=== PATIENT | male | born 1995 | race Caucasian/White ===

== ENCOUNTER 2017-03-07 09:08 | Inpatient (IN) ==
[2017-03-07] MEDS ORDERED: Albuterol 2.5 MG/3 ML NEBULIZER IH ONE (09:22)
[2017-03-07] MEDS ORDERED: CeFAZolin Syr 3,000MG/30 ML 3,000 MG/30 ML SYRINGE IVPB ONE (09:22)
[2017-03-07] MEDS ORDERED: Lidocaine -MPF 1% 2 ML VIAL ID ONE (09:22)
[2017-03-07] MEDS ORDERED: Ringers Solution, Lactated 1,000 ML IVC SCH (09:30)
[2017-03-07] MEDS ORDERED: *HR* Propofol 200 MG/20 ML VIAL IVP ONE ×2 (09:31→09:34)
[2017-03-07] MEDS ORDERED: *HR* Midazolam HCl 2 MG/2 ML VIAL ONE (09:31)
[2017-03-07] MEDS ORDERED: *HR* FentaNYL (PF) 100 MCG/2 ML VIAL ONE ×4 (09:31→13:28)
[2017-03-07] MEDS ORDERED: *HR* Succinylcholine 200 MG/10 ML VIAL IVP ONE (09:33)
[2017-03-07] MEDS ORDERED: Lidocaine -MPF 2% 2 ML VIAL ONE (09:34)
[2017-03-07] MEDS ORDERED: Ondansetron 4 MG/2 ML VIAL ONE (09:34)
[2017-03-07] MEDS ORDERED: Dexamethasone 4 MG/ML VIAL ONE (09:34)
--- NOTE | 2017-03-07 10:08 | Anesthesia Evaluation PreOp ---
Date of Encounter: 03/07/17 Time of Encounter: 10:06 - Past History Planned Operation: L4-S1 laminectomy Cardiac History: HTN Pulmonary History: Asthma WASH TEST CHECKER History: Other (RLE radicular pain) Other Medical History: Hepatic (fatty liver), GERD, Other (obesity) Anesthesia History: No Prior Anesthetic Complications, Past Anesthesia (liver bx ) Alcohol Use: none Drug use: none Medications and Allergies Albuterol Sulfate [Ventolin Hfa] 2 puff IH Q4H PRN 03/07/17 [History] Lisinopril/Hydrochlorothiazide [Zestoretic 20-12.5 mg Tablet] 1 tab PO DAILY 11/14 [History] Ranitidine HCl [Zantac] 150 mg PO BID 03/07/17 [History] 3 Allergy/AdvReac Type Severity Reaction Status Date / Time No Known Allergies Allergy Verified 03/07/17 09:46 - Meds/Allergy Pre-op Review Medications Reviewed: Yes Allergies Reviewed: Yes Beta Blockers on Current Med List: No Anesthesia Results - Labs Laboratory Tests 03/03/17 15:41 Hgb 15.2 Hct 45.3 Plt Count 291 Anesthesia Exam Selected Entries 03/07/17 09:33 Temperature 98.8 F Pulse Rate 100 Respiratory Rate 18 Blood Pressure 143/83 O2 Sat by Pulse Oximetry 97 Weight: 143kg BMI 38 NPO (# of Hours): 8 Pain Scale: 0 Pain Scale Used: Numeric (1 - 10) - HEENT Pupil (Motor): EOMI Mallampati: IV Teeth: Normal Oral Opening: Greater than 3 - WASH TEST CHECKER LOC: Oriented WASH TEST CHECKER Motor: Normal RUE, Normal LUE, Normal RLE, Normal LLE, Normal Face WASH TEST CHECKER Sensory: Normal: RUE, LUE, RLE, LLE, Face - Cardiac Rhythm: Regular Murmur: None - Pulmonary Breath Sounds: bilateral Clear Respiratory Effort: Symmetrical Anesthesia Assess/Plan ASA Score: 2 Modified [place] Scale for Level of Consciousness: Cooperative, oriented, and tranquil Anesthetic Plan: General Monitoring Plan: Standard Monitors Recovery Plan: PACU (Discussed GA, risks of post op visual changes. Agrees to proceed)
--- NOTE | 2017-03-07 10:51 | History & Physical Report ---
Date of Encounter: 03/07/17 Time of Encounter: 10:51 24 Hour HP Update - Instructions Instructions: If the History and Physical is less than 30 days old and was completed prior to A.M. admission and or procedure and has NOT been updated on calendar day of procedure please complete this update prior to performing procedure. - Update Patient reports changes in Medical Condition: No Changes in examination, assessment, or condition: No Changes in Medication: No Preop tests/diagnostics Reviewed: No Pre-Op MRSA Screen: Negative Surgery Remains Indicated: Yes Consent for Planned Operative Procedure(s) Verified: Yes - Pre-Operative Checklist Preoperative Checklist Indicated: No Prophylactic Antibiotic Ordered: Yes Home Medications Include Beta Abdullahi: No Beta Abdullahi Taken Today (Day of Surgery): No Beta Abdullahi Taken Yesterday (Day Prior to Surgery): No Is VTE Prophylaxis Indicated?: Yes
[2017-03-07] MEDS ORDERED: *HR* Promethazine 25 MG/ML VIAL IVP PRN (11:49)
[2017-03-07] MEDS ORDERED: *HR* Meperidine 25 MG/ML SYRINGE IVP PRN (11:49)
[2017-03-07] MEDS ORDERED: Ondansetron 4 MG/2 ML VIAL IVP ONE (11:49)
[2017-03-07] MEDS ORDERED: *HR* Labetalol 20 MG/4 ML SYRINGE IVP PRN (11:49)
[2017-03-07] MEDS ORDERED: *HR* Rocuronium Bromide 50 MG/5 ML VIAL ONE ×2 (11:55→12:49)
[2017-03-07] MEDS ORDERED: Neostigmine Methylsulfate 3 MG/3 ML SYRINGE ONE (12:49)
[2017-03-07] MEDS ORDERED: *HR* HYDROmorphone 2 MG/ML SYRINGE ONE (12:53)
[2017-03-07] MEDS ORDERED: *HR* Phenylephrine 10 MG/ML VIAL ONE (13:06)
--- NOTE | 2017-03-07 13:27 | Orthopedic Operative Note ---
Date of procedure: 03/07/17 Pre-op diagnosis: Lumbar stenosis, lumbar radiculopathy Post-op diagnosis: same Operation/Findings: Laminectomy L4-S1:The patient was brought to the operative theater where he underwent general endotracheal anesthesia. He was given antibiotics prior to the start of the procedure. Compression boots and stockings were used for deep vein thrombosis prophylaxis. The patient was placed prone on a Rafael table. The back was prepped and draped in the usual sterile fashion. An incision was marked and centered over the L4-S1 interspaces in the midline. We used Bovie cautery to make an incision and then this incision was deepened through the lumbar fascia. Bovie cautery and Velazquez elevators were used to reflect the paraspinal musculature to the lateral extent of the L4-5 and L5-S1 facet joints bilaterally. Mickie clamps were placed over the spinous processes of L4 and L5 and an intraoperative lateral fluorograph was obtained. A discusssion was held between the radiologist and surgeon who both confirmed we were at the correct operative level. We then removed the supraspinous and interspinous ligaments between L5 and S1 and subsequently removed the ligamentum flavum from its origin on the distal undersurface of the L5 lamina. The ligamentum flavum was noted to be quite hypertrophied as well as the facets were hypertrophied. 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 This required performing a laminectomy of L5 with partial medial facetectomies including undercutting of the L5-S1 facets to decompress the lateral recesses. move proximally to the L4 -5 level again removing the ligamentum flavum, and undercutting the facets at L4 -5 to decompress the lateral recesses. Partial L4 laminectomy was performed. After the decompression was complete we checked the foramen and the traversing nerve roots at L4-5 and L5-S1and they were found to be free and patent. We copiously irrigated the wound and then closed the wound in layers with 1 Vicryl for the fascia, 2-0 Vicryl for the subcutaneous tissue, and Dermabond was used for skin closure. Sterile dressings were placed over the wound, the patient was turned supine in a hospital bed, and was extubated in the operative theater. All sponge needles and instrument counts were correct at the end of the procedure. The patient tolerated the procedure well without complications. Anesthesia: GETA Surgeon: Raulito Chery Jr Estimated blood loss (cc): 35 Condition: stable Disposition: PACU
[2017-03-07] MEDS ORDERED: *HR* HYDROmorphone (PF) 1 MG/ML SYRINGE ONE (13:53)
[2017-03-07] MEDS: *HR* HYDROmorphone (PF) 1 MG/ML SYRINGE IVP PRN ×2 (13:55→14:00)
--- NOTE | 2017-03-07 14:26 | Anesthesia Evaluation Post Op ---
Date of Encounter: 03/07/17 Time of Encounter: 14:25 - Vital Signs Vital Signs: Vital Signs/O2 Sat, Most Current Temp Pulse Resp BP Pulse Ox 99.2 F 103 16 133/84 94 03/07/17 14:14 03/07/17 14:24 03/07/17 14:24 03/07/17 14:24 03/07/17 14:24 - Lungs Lungs: Clear Ascult./Percussion - Airway Airway: Non-obstructed - Cardiovascular Regular Rate - Mental Status Mental Status: Asleep with brisk response to light stimulation - Pain Pain Scale: 4 - Nausea Vomiting Nausea Vomiting: Not Present - Hydration Hydration: NPO, Has not voided - Discharge PostOp Status: Transfer Patient to floor
[2017-03-07] MEDS ORDERED: *HR* Morphine 2 MG/ML SYRINGE IVP PRN (14:53)
[2017-03-07] MEDS ORDERED: Ondansetron 4 MG/2 ML VIAL IVP PRN (14:53)
[2017-03-07] MEDS ORDERED: Acetaminophen 325 MG TABLET PO PRN (14:53)
[2017-03-07] MEDS ORDERED: Naloxone 0.4 MG/ML INJ IVP PRN (14:53)
[2017-03-07] MEDS ORDERED: *HR* OxyCODONE Immed Rel 5 MG TABLET PO PRN (14:53)
[2017-03-07] MEDS: Ringers Solution, Lactated 1,000 ML IVC SCH (18:45)
[2017-03-07] MEDS: Famotidine 20 MG TABLET PO SCH (19:47)
[2017-03-07] MEDS: CeFAZolin Premix DUPLEX 2,000 MG/50 ML BAG IVPB SCH (19:48)
[2017-03-08] MEDS: *HR* OxyCODONE Immed Rel 5 MG TABLET PO PRN ×5 (01:54→23:53)
[2017-03-08] MEDS: CeFAZolin Premix DUPLEX 2,000 MG/50 ML BAG IVPB SCH (04:31)
[2017-03-08] MEDS: diazePAM 10 MG TABLET PO PRN ×2 (04:43→21:39)
[2017-03-08] MEDS: Gabapentin 300 MG CAPSULE PO SCH ×3 (04:43→21:39)
[2017-03-08] MEDS: Famotidine 20 MG TABLET PO SCH ×2 (09:03→21:39)
[2017-03-08] MEDS: Lisinopril-HCTZ 20-12.5mg TABLET PO SCH (09:03)
--- NOTE | 2017-03-08 10:51 | Spine Progress Note ---
Date of Encounter: 03/08/17 Time of Encounter: 10:49 Subjective Principal diagnosis: Lumbar stenosis, lumbar radiculopathy Interval history: The patient complains of significant pain and is poorly mobilizing.. Afebrile vital signs are stable. Dressing is clean dry and intact. Neurovascularly intact with regard to bilateral lower extremities. Fires all upper and lower extremity motor groups. . Assessment :stable. Plan mobilize ,continue analgesics, discharge planning. Observation for possible home-based rehabilitation and pain control. Objective Vital signs: Vital Signs Temp Pulse Resp BP Pulse Ox 03/08/17 06:42 98.9 F 78 18 113/75 95 03/08/17 04:33 97.4 F L 109 15 156/112 96 03/07/17 18:23 98.3 F 108 15 138/70 97 03/07/17 16:10 97.8 F 119 16 110/56 93 03/07/17 15:20 98.6 F 122 16 113/60 96 03/07/17 14:53 97.7 F 118 16 116/71 03/07/17 14:34 99.0 F 108 16 136/77 94 03/07/17 14:24 103 16 133/84 94 03/07/17 14:14 99.2 F 98 16 118/69 93 03/07/17 14:04 110 16 126/74 93 03/07/17 13:54 118 16 139/82 94 03/07/17 13:44 99.5 F 99 16 141/91 96 Intake and Output 03/07/17 03/08/17 03/08/17 23:59 07:59 15:59 Intake Total 890 / 890 480 / 480 Balance 890 / 890 480 / 480 Intake: IV Fluids 50 / 50 Ancef Premix DUPLEX 2,000 mg In 50 / 50 50 ml @ 100 mls/hr IVPB Q8H [facility] Rx#:[id number] Oral 840 / 840 480 / 480 Other: Meal Dinner Breakfast Percent of Meal Consumed 70% 100% Consult Discharge Plan - Plan Referrals: Lily Chairez, SIGNAL PROCESSING ENGINEER [Primary Care Provider] -
[2017-03-09] MEDS ORDERED: Temazepam 15 MG CAPSULE PO PRN (00:19)
[2017-03-09] MEDS: *HR* Morphine 2 MG/ML SYRINGE IVP PRN ×3 (01:49→19:22)
[2017-03-09] MEDS: *HR* OxyCODONE Immed Rel 5 MG TABLET PO PRN ×2 (08:05→12:07)
[2017-03-09] MEDS: Lisinopril-HCTZ 20-12.5mg TABLET PO SCH (08:06)
[2017-03-09] MEDS: Gabapentin 300 MG CAPSULE PO SCH ×2 (08:06→15:12)
[2017-03-09] MEDS: Famotidine 20 MG TABLET PO SCH (08:06)
--- NOTE | 2017-03-09 12:55 | Discharge Summary ---
Date of Encounter: 03/09/17 Time of Encounter: 12:54 - Discharge Diagnosis (1) Lumbar stenosis without neurogenic claudication Priority: Primary Status: Chronic (2) Lumbar radiculopathy Priority: Secondary Status: Chronic - Discharge Medications Prescriptions: OxyCODONE Immed Rel [Roxicodone 5 MG] 5 mg PO Q4HR PRN #30 tablet PRN Reason: Severe Pain 7-10 Cyclobenzaprine [Flexeril] 10 mg PO Q6H PRN #30 tablet PRN Reason: Spasms diazePAM [Valium] 10 mg PO TID PRN #30 tablet PRN Reason: Spasms Home Medications: Albuterol Sulfate [Ventolin Hfa] 2 puff IH Q4H PRN 03/07/17 [History] Lisinopril/Hydrochlorothiazide [Zestoretic 20-12.5 mg Tablet] 1 tab PO DAILY 11/14 [History] Ranitidine HCl [Zantac] 150 mg PO BID 03/07/17 [History] Cyclobenzaprine [Flexeril] 10 mg PO Q6H PRN #30 tablet 03/09/17 [Rx] OxyCODONE Immed Rel [Roxicodone 5 MG] 5 mg PO Q4HR PRN #30 tablet 03/09/17 [Rx] diazePAM [Valium] 10 mg PO TID PRN #30 tablet 03/09/17 [Rx] Allergies/Adverse Reactions: 3 Allergy/AdvReac Type Severity Reaction Status Date / Time No Known Allergies Allergy Verified 03/07/17 09:46 - Impressions ITS Impressions Fluoroscopy 03/07/17 11:50 IMPRESSION: Intraprocedural fluoroscopic spot images as above. See separate procedure report for more information. D/ / Stevie Mullins MD / Stevie Mullins MD Interpreting Provider: Stevie Mullins MD Date of admission: 03/07/2017 Primary care physician: Lily Chairez CNP Consults: 03/07/17 14:53 Consult to Nurse Navigator [CONS] Routine Comment: spine navigator Consult to Occupational Therapy [CONS] Routine Comment: Evaluate, develop and implement POC Reason for Consult: Postoperative rehabilitation Consult to Physical Therapy [CONS] Routine Comment: Evaluate, develop and implement POC Reason for Consult: Postoperative rehabilitation 03/09/17 12:30 Consult to Inserter Promotional Item [CONS] Routine Reason for SW Consult: d/c planning - Patient Status Disposition: Transfer Inpatient Rehab Fac Condition: Good Functional capacity at discharge: uses cane/walker Overall status at discharge: patient is progressing back to baseline - Discharge Instructions Follow Up With: Lily Chairez CNP [Primary Care Provider] - 03/20/17 1:30 pm - Diet and Activity Activity: as per physical therapy Diet: advance to your usual diet - Hospital Course Hospital course: Mr. Townsend is a 21 year old male The patient had an uneventful postoperative course. Progressed from intravenous analgesic needs to oral analgesic needs only. Remained neurovascularly intact and mobilized satisfactorily. All intraoperative and/or postoperative radiographic studies were satisfactory. Patient is discharged with plan for rehabilitation and follow-up in 2 weeks post discharge on analgesic medication and patient's home medications. - Time Spent with Patient Total time spent providing and/or coordinating discharge services: - VTE Documentation of Mechanical Device: Intermittent pneumatic compression device
[2017-03-09] MEDS ORDERED: ceFAZolin 3,000 MG in Water for inj. (sterile) 30 ML IVP ONE (17:05)
--- NOTE | 2017-03-09 17:10 | Spine Progress Note ---
Date of Encounter: 03/09/17 Time of Encounter: 17:06 - Assessment and Plan (1) Lumbar stenosis without neurogenic claudication Current Visit: Yes Status: Chronic (2) Lumbar radiculopathy Current Visit: Yes Status: Chronic Subjective Principal diagnosis: Lumbar stenosis, lumbar radiculopathy Interval history: The patient complains of significant pain and is poorly mobilizing. He has had 2 episodes of urinary incontinence today. He states that he can tell he needs to void, but he has difficulty initiating a stream and it takes longer than usual. Also has some left leg numbness. Afebrile vital signs are stable. Incision is clean dry and intact. Neurovascularly intact with regard to bilateral lower extremities. Fires all upper and lower extremity motor groups. Bladder scan was performed and showed at least 600 mL. Carroll catheter was placed and 2000 mL was evacuated prior to clamping. Lumbar CT scan was performed and showed postoperative hematoma seroma with evidence of prior laminectomies. 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 Assessment : Evolving cauda equina syndrome . Plan due to his concerning symptomatology consistent with evolving cauda equina syndrome including urinary incontinence and significant bladder residuals, I find it reasonable to perform surgery in the form of a evacuation of hematoma, possible laminectomies lumbar spine. Risks benefits possible complications were discussed and the patient would like to proceed. We will plan on semi-urgent decompression this evening. Objective Vital signs: Vital Signs Temp Pulse Resp BP Pulse Ox 03/09/17 11:52 98.1 F 110 16 118/76 97 03/09/17 06:51 98.7 F 87 16 128/76 95 03/09/17 05:00 98.9 F 95 16 125/83 96 03/09/17 00:32 98.1 F 100 18 109/71 95 03/08/17 19:53 98.9 F 100 18 114/64 95 Intake and Output 03/09/17 03/09/17 03/09/17 07:59 15:59 23:59 Other: # Voids 1 Consult Discharge Plan - Plan Referrals: Lily Chairez, SILVERWARE WASHER [Primary Care Provider] - 03/20/17 1:30 pm Asia Ceron PAC [Physician Nail Making Machine Setter] - 03/21/17 11:00 am Robi Felix, SILVERWARE WASHER [Advanced Practice Nurse] - Prescriptions: OxyCODONE Immed Rel [Roxicodone 5 MG] 5 mg PO Q4HR PRN #30 tablet PRN Reason: Severe Pain 7-10 Cyclobenzaprine [Flexeril] 10 mg PO Q6H PRN #30 tablet PRN Reason: Spasms diazePAM [Valium] 10 mg PO TID PRN #30 tablet PRN Reason: Spasms
--- NOTE | 2017-03-09 22:14 | Anesthesia Evaluation PreOp ---
Date of Encounter: 03/10/17 Time of Encounter: 22:10 - Past History Cardiac History: HTN Pulmonary History: Asthma Other Medical History: Hepatic (fatty liver), GERD, Other (obesity) Anesthesia History: No Prior Anesthetic Complications, Past Anesthesia (liver bx , L4-S1 laminectomy 03/07/2017) Alcohol Use: none Drug use: none Medications and Allergies Albuterol Sulfate [Ventolin Hfa] 2 puff IH Q4H PRN 03/07/17 [History] Lisinopril/Hydrochlorothiazide [Zestoretic 20-12.5 mg Tablet] 1 tab PO DAILY 11/14 [History] Ranitidine HCl [Zantac] 150 mg PO BID 03/07/17 [History] Cyclobenzaprine [Flexeril] 10 mg PO Q6H PRN #30 tablet 03/09/17 [Rx] OxyCODONE Immed Rel [Roxicodone 5 MG] 5 mg PO Q4HR PRN #30 tablet 03/09/17 [Rx] diazePAM [Valium] 10 mg PO TID PRN #30 tablet 03/09/17 [Rx] 3 Allergy/AdvReac Type Severity Reaction Status Date / Time No Known Allergies Allergy Verified 03/07/17 09:46 - Meds/Allergy Pre-op Review Medications Reviewed: Yes Allergies Reviewed: Yes Beta Blockers on Current Med List: No Anesthesia Results - Labs Laboratory Tests 03/03/17 03/03/17 03/03/17 15:41 15:41 15:41 WBC 12.4 H Hgb 15.2 Hct 45.3 Plt Count 291 INR 1.0 Sodium 138 Potassium 3.9 Chloride 105 Carbon Dioxide 22 BUN 14 Creatinine 0.98 Anesthesia Exam O2 Sat O2 Sat by Pulse Oximetry 97 O2 Sat by Pulse Oximetry 95 O2 Sat by Pulse Oximetry 96 O2 Sat by Pulse Oximetry 95 Vital Signs Temp Pulse Resp BP Pulse Ox 98.8 F 100 18 143/83 97 03/07/17 09:33 03/07/17 09:33 03/07/17 09:33 03/07/17 09:33 03/07/17 09:33 Vital Signs/O2 Sat, Most Current Temp Pulse Resp BP Pulse Ox 98.1 F 110 16 118/76 97 03/09/17 11:52 03/09/17 11:52 03/09/17 11:52 03/09/17 11:52 03/09/17 11:52 Height: 6'4'' Weight: 315# NPO (# of Hours): > 8 hrs Pain Scale: 0 Pain Scale Used: Numeric (1 - 10) - HEENT Pupil (Motor): Pupils equal, EOMI Mallampati: III Teeth: Normal Oral Opening: Greater than 3 - AUTOMOTIVE DESIGN LAYOUT DRAFTER LOC: Oriented AUTOMOTIVE DESIGN LAYOUT DRAFTER Motor: Normal RUE, Normal LUE, Normal RLE, Normal LLE, Normal Face AUTOMOTIVE DESIGN LAYOUT DRAFTER Sensory: Normal: RUE, LUE, RLE, LLE, Face - Cardiac Rhythm: Regular Murmur: None JVD: No Carotid Bruit: No - Pulmonary Breath Sounds: bilateral Clear Respiratory Effort: Symmetrical Anesthesia Assess/Plan ASA Score: 3 Modified [place] Scale for Level of Consciousness: Cooperative, oriented, and tranquil Anesthetic Plan: General Autologous Blood: Yes Monitoring Plan: Standard Monitors Recovery Plan: PACU
[2017-03-09] MEDS ORDERED: *HR* FentaNYL (PF) 100 MCG/2 ML VIAL ONE ×2 (22:27→23:45)
[2017-03-09] MEDS ORDERED: *HR* Propofol 200 MG/20 ML VIAL IVP ONE (22:27)
[2017-03-09] MEDS ORDERED: *HR* Midazolam HCl 2 MG/2 ML VIAL ONE (22:27)
[2017-03-09] MEDS ORDERED: Ondansetron 4 MG/2 ML VIAL ONE (22:29)
[2017-03-09] MEDS ORDERED: Lidocaine -MPF 2% 2 ML VIAL ONE (22:29)
[2017-03-09] MEDS ORDERED: Dexamethasone 4 MG/ML VIAL ONE (22:29)
[2017-03-09] MEDS ORDERED: *HR* Rocuronium Bromide 50 MG/5 ML VIAL ONE (22:29)
[2017-03-09] MEDS ORDERED: *HR* Labetalol 20 MG/4 ML SYRINGE IVP PRN (23:09)
[2017-03-09] MEDS ORDERED: *HR* HYDROmorphone (PF) 1 MG/ML SYRINGE IVP PRN (23:09)
[2017-03-09] MEDS ORDERED: Ondansetron 4 MG/2 ML VIAL IVP ONE (23:09)
[2017-03-09] MEDS ORDERED: Albuterol 2.5 MG/3 ML NEBULIZER IH ONE (23:09)
[2017-03-09] MEDS ORDERED: *HR* Promethazine 25 MG/ML VIAL IVP PRN (23:09)
[2017-03-10] MEDS ORDERED: *HR* FentaNYL (PF) 100 MCG/2 ML VIAL ONE (00:45)
[2017-03-10] MEDS: Ringers Solution, Lactated 1,000 ML IVC SCH (00:51)
--- NOTE | 2017-03-10 00:55 | Orthopedic Operative Note ---
Date of procedure: 03/10/17 Pre-op diagnosis: Evolving cauda equina syndrome Post-op diagnosis: same Operation/Findings: Evacuation of hematoma, lumbar laminectomy and decompression: The patient was brought to the operative theater where he underwent general endotracheal anesthesia. He was given antibiotics prior to the start of the procedure. Compression boots and stockings were used for deep vein thrombosis prophylaxis. The patient was placed prone on a Rafael table. The back was prepped and draped in the usual sterile fashion. An incision was marked and centered over the L4-S1 interspaces in the midline which was the previously utilized incision. We used Bovie cautery to make an incision and then this incision was deepened through the lumbar fascia. Bovie cautery and Velazquez elevators were used to reflect the paraspinal musculature to the lateral extent of the L4-5 and L5- S1 facet joints bilaterally. There was noted to be some serosanguineous fluid consistent with hematoma superficial and deep to the fascia. This was evacuated. There was no evidence of infection, abscess, or purulence noted. We identified the area of previous decompression L4-S1 and copiously irrigated this region. We extended the decompress more proximally by doing a further partial laminectomy of L4. We checked the foramen and the traversing nerve roots at L4-5 and L5-S1 and they were found to be free and patent. We could easily pass a probe proximally under the proximal aspect of the L4 lamina and this was found to be free centrally as well. We copiously irrigated the wound and then closed the wound in layers with 1 Vicryl for the fascia, 2-0 Vicryl for the subcutaneous tissue, and Dermabond was used for skin closure. Sterile dressings were placed over the wound, the patient was turned supine in a hospital bed, and was extubated in the operative theater. All sponge needles and instrument counts were correct at the end of the procedure. The patient tolerated the procedure well without complications. Anesthesia: GETA Surgeon: Raulito Chery Jr Estimated blood loss (cc): 15 Condition: stable Disposition: PACU
--- NOTE | 2017-03-10 01:35 | Anesthesia Evaluation Post Op ---
Date of Encounter: 03/10/17 Time of Encounter: 01:35 - Vital Signs Vital Signs: Vital Signs/O2 Sat, Most Current Temp Pulse Resp BP Pulse Ox 97.3 F L 105 20 124/58 95 03/10/17 01:06 03/10/17 01:16 03/10/17 01:16 03/10/17 01:16 03/10/17 01:16 - Lungs Lungs: Clear Ascult./Percussion - Airway Airway: Non-obstructed - Cardiovascular Regular Rate - Mental Status Mental Status: Alert & Oriented, Answers Appropriately - Pain Pain Scale: 0 Pain Scale used: Numeric (1 - 10) - Hydration Hydration: NPO, Carroll catheter - Discharge PostOp Status: Transfer Patient to floor
[2017-03-10] MEDS ORDERED: Temazepam 15 MG CAPSULE PO PRN (01:42)
[2017-03-10] MEDS ORDERED: *HR* Promethazine 25 MG/ML VIAL IVP PRN (01:42)
[2017-03-10] MEDS ORDERED: Naloxone 0.4 MG/ML INJ IVP PRN (01:42)
[2017-03-10] MEDS: *HR* Morphine 2 MG/ML SYRINGE IVP PRN ×2 (04:07→14:06)
[2017-03-10] MEDS ORDERED: ceFAZolin 1,000 MG in Water for inj. (sterile) 10 ML IVP SCH (08:00)
[2017-03-10] MEDS: Lisinopril-HCTZ 20-12.5mg TABLET PO SCH (08:31)
[2017-03-10] MEDS: *HR* OxyCODONE Immed Rel 5 MG TABLET PO PRN ×4 (08:32→21:32)
[2017-03-10] MEDS: Gabapentin 300 MG CAPSULE PO SCH ×3 (08:32→20:20)
[2017-03-10] MEDS: Famotidine 20 MG TABLET PO SCH ×2 (08:32→20:20)
[2017-03-10] MEDS: ceFAZolin 2,000 MG in Water for inj. (sterile) 20 ML IVP SCH ×2 (08:34→16:02)
--- NOTE | 2017-03-10 12:51 | Neurology - Consult Note ---
Date of Encounter: 03/10/17 Time of Encounter: 12:49 Assessment and Plan (1) Cauda equina syndrome Status: Acute Patient is s/p L4, L5 laminectomy post op day number 3, who developed acutely worsening of leg/feet weakness, loss of sensation to his feet and perineal region concerning for cauda equina syndrome. CT of lumbar spine showed presence of ' lumbar spine wo con 1. Changes of interval L4 laminotomies and L5 laminectomies with superficial subincisional fluid collection most consistent with a postoperative seroma.' According to Dr. Raulito Chery who performed emergent re-explorative surgery to lumbar spine it was found the patient does have evidence of postsurgical hematoma, which was thoroughly evaluated and the surgery was reported successful. 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 Currently the patient still has loss of fine sensation to his perineal region, weakness in toe extension and flexion and also with reduced sensation to distal lower extremities and feet, bilaterally. Symptoms and signs consistent with cauda equina syndrome. patient already had re-exploration surgery and symptoms are improving therefore would watch him closely and will hold further imaging study at this time. Case discussed with Dr. Raulito Chery and the patient will be re-evaluated upon request. History of Present Illness Chief complaint: leg weakness, s/p lumbar Laminectomy HPI: Mr. Townsend is a 21 year old male with PMH significant for congenital lumbar stenosis, with neurocaudication, s/p lumbar laminectomy L4-L5 03/07/2017 who developed postoperatively, left leg numbness and loss of sensation to the perineal region and found to have likely 'superficial subincisional fluid collection most consistent with a postoperative seroma' and had emergent re- exploration due to concerns for hematoma causing cauda equina syndrome. Surgical operation was done at mid night. This morning patient developed bilateral leg weakness therefore neurology was consulted. Patient states that prior to surgery he would experiencing pain in his legs and feet and would not be able to stand up for few minutes. He was having some foot drop and weakness and loss of feeling left more that the right side and that after the initial lumbar surgery he then was not able to move his right toes and also has had weakness to move his legs. This morning, he was having pain when externally rotate his right leg at the groin area. He is still has weakness in his feet bilaterally and able to life both legs off the bed. he states that he is doing a little better though, both in terms of moving his feet and the numbness in his perineal region and his feet. Past Med Surg Social Fam HX - Past Medical History Medical history: GERD, hypertension, other Psychiatric history: no psych history - Social History Smoking Status: Never smoker Smokeless Tobacco Status: No Alcohol use: none Drug use: none Medications and Allergies Albuterol Sulfate [Ventolin Hfa] 2 puff IH Q4H PRN 03/07/17 [History] Lisinopril/Hydrochlorothiazide [Zestoretic 20-12.5 mg Tablet] 1 tab PO DAILY 11/14 [History] Ranitidine HCl [Zantac] 150 mg PO BID 03/07/17 [History] Cyclobenzaprine [Flexeril] 10 mg PO Q6H PRN #30 tablet 03/09/17 [Rx] OxyCODONE Immed Rel [Roxicodone 5 MG] 5 mg PO Q4HR PRN #30 tablet 03/09/17 [Rx] diazePAM [Valium] 10 mg PO TID PRN #30 tablet 03/09/17 [Rx] 3 Allergy/AdvReac Type Severity Reaction Status Date / Time No Known Allergies Allergy Verified 03/07/17 09:46 All Systems: A 10-system review of systems was performed and is negative for pertinent findings except as documented above in the HPI. Physical Examination - Vital Signs Vital Signs: Initial Vital Signs Temp Pulse Resp BP Pulse Ox 98.8 F 100 18 143/83 97 03/07/17 09:33 03/07/17 09:33 03/07/17 09:33 03/07/17 09:33 03/07/17 09:33 - Constitutional General appearance: comfortable - Neurologic Sensorimotor examination: other (Patient has reduced pinprick and touch vibration senses at the feet bilaterally. Has elastic stocking both sides) Detailed motor examination: other (Patient has difficult with dorsiflexion and plantar extension on both side, no weakness in hip flexion bilaterally. Able to move his feet slightly more to the right foot) Motor examination - right side: 3/5: toe extension (EHL), plantarflexion Motor examination - left side: 2/5: toe extension (EHL), plantarflexion Detailed sensory examination: other (Reduced pinprinck, vibration senses and touch bilaterally at the feet up to the calf region) Reflexes: Biceps: 1+, Triceps: 1+, Brachioradialis: 1+, Patella: 1+, Achilles: 0 Mental Status Examination: awake, alert, oriented to person, oriented to place, oriented to time, follows commands appropriately, answers questions appropriately, no agnosia, no aphasia, no aproxia Cranial nerve examination: PERRL, EOMI, visual romero intact, corneal reflexes brisk symmetrically, sensory to face intact, mastication intact, no facial asymmetry is present, no dysarthria, hearing is intact symmetrically, soft palate elevates bilaterally upon phonation, gag reflex intact, flexes SCM and trapezius muscles symmetrically with full power, tongue protrudes midline, no atrophy or facial fasiculations present Consult Discharge Plan - Plan Referrals: Lily Chairez, PROJECT INTERN [Primary Care Provider] - 03/20/17 1:30 pm Asia Ceron PAC [Physician Account Underwriter] - 03/21/17 11:00 am Robi Felix, PROJECT INTERN [Advanced Practice Nurse] - Prescriptions: OxyCODONE Immed Rel [Roxicodone 5 MG] 5 mg PO Q4HR PRN #30 tablet PRN Reason: Severe Pain 7-10 Cyclobenzaprine [Flexeril] 10 mg PO Q6H PRN #30 tablet PRN Reason: Spasms diazePAM [Valium] 10 mg PO TID PRN #30 tablet PRN Reason: Spasms
[2017-03-10] MEDS: diazePAM 10 MG TABLET PO PRN (16:02)
[2017-03-10] MEDS: *HR* HYDROmorphone (PF) 1 MG/ML SYRINGE IVP PRN (17:44)
--- NOTE | 2017-03-10 22:10 | Orthopedics Progress Note ---
Date of Encounter: 03/10/17 Time of Encounter: 13:00 Subjective Principal diagnosis: Lumbar stenosis, lumbar radiculopathy Interval history: S: Seen earlier in the day at the request of Dr. Chery. The patient has no significant pain. New weakness in the lower extremities O: Afebrile, VSS Lumbar incision is C/D/I Significant weakness in the lower extremities, particularly the ankle and toes Hip flexors intact Feet are warm and well perfused A: Post hematoma drianage, lumbar spine P: Resume postoperative care. Neurology consulted for the weakness. Dr. Chery aware of recommendations. Objective Vital signs: Vital Signs Temp Pulse Resp BP Pulse Ox 03/10/17 19:22 98.1 F 115 16 114/76 94 03/10/17 17:45 16 98 03/10/17 16:31 97.9 F 105 16 126/74 98 03/10/17 14:13 103 124/79 03/10/17 10:24 97.7 F 91 16 127/65 97 03/10/17 08:35 97.8 F 90 18 112/73 95 03/10/17 06:30 97.8 F 83 16 124/76 96 03/10/17 04:58 97.9 F 86 18 122/73 95 03/10/17 04:11 98.0 F 98 16 109/71 95 03/10/17 03:11 98.3 F 100 18 103/68 94 03/10/17 02:37 98.6 F 98 18 119/79 93 03/10/17 02:07 97.8 F 103 16 123/81 93 03/10/17 01:36 98.5 F 108 14 107/65 94 03/10/17 01:26 105 14 112/59 94 03/10/17 01:16 105 20 124/58 95 03/10/17 01:06 97.3 F L 115 20 131/73 98 03/09/17 22:28 98.9 F 107 18 108/74 97 Intake and Output 03/10/17 03/10/17 03/10/17 07:59 15:59 23:59 Intake Total 20 Output Total 490 / 490 700 / 700 Balance -490 / -490 -680 / -680 Intake: IV Fluids / Ancef 2,000 MG In Water for inj 20 / 20 . (sterile) 20 ML @ 200 mls/hr IVP Q8H [facility] Rx#:[id number] Output: Urine 700 / 700 Urethral (Carroll) 700 / 700 Estimated Blood Loss Urine Amount (Catheter) 250 / 250 Catheter 225 / 225 - VTE Documentation of Mechanical Device: Intermittent pneumatic compression device Consult Discharge Plan - Plan Referrals: Lily Chairez, COAGULATING OPERATOR [Primary Care Provider] - 03/20/17 1:30 pm Asia Ceron PAC [Physician Patient Portal Concierge] - 03/21/17 11:00 am Robi Felix, COAGULATING OPERATOR [Advanced Practice Nurse] - Prescriptions: Cyclobenzaprine [Flexeril] 10 mg PO Q6H PRN #30 tablet PRN Reason: Spasms diazePAM [Valium] 10 mg PO TID PRN #30 tablet PRN Reason: Spasms OxyCODONE Immed Rel [Roxicodone 5 MG] 5 mg PO Q4HR PRN #30 tablet PRN Reason: Severe Pain 7-10
[2017-03-11] MEDS: *HR* HYDROmorphone (PF) 1 MG/ML SYRINGE IVP PRN ×3 (01:19→23:20)
--- NOTE | 2017-03-11 06:30 | Orthopedics Progress Note ---
Date of Encounter: 03/11/17 Time of Encounter: 06:29 Subjective Principal diagnosis: Lumbar stenosis, lumbar radiculopathy Interval history: Patient seen this morning no new complaints by report Patient status post second surgery 2 days ago. No complaints about bowel or bladder issues. Baseline neurologic status unknown will continue to monitor patient moves toes but does it very slow Objective Vital signs: Vital Signs Temp Pulse Resp BP Pulse Ox 03/11/17 04:28 98.1 F 98 16 117/68 89 03/10/17 19:22 98.1 F 115 16 114/76 94 03/10/17 17:45 16 98 03/10/17 16:31 97.9 F 105 16 126/74 98 03/10/17 14:13 103 124/79 03/10/17 10:24 97.7 F 91 16 127/65 97 03/10/17 08:35 97.8 F 90 18 112/73 95 03/10/17 06:30 97.8 F 83 16 124/76 96 Intake and Output 03/10/17 03/10/17 03/11/17 15:59 23:59 07:59 Intake Total 20 / 20 Output Total 700 / 700 1100 / 1100 Balance -680 / -680 -1100 / -1100 Intake: IV Fluids 20 / 20 Ancef 2,000 MG In Water for inj 20 / 20 . (sterile) 20 ML @ 200 mls/hr IVP Q8H [facility] Rx#:[id number] Output: Urine 700 / 700 1000 / 1000 Urethral (Carroll) 700 / 700 Catheter 100 / 100 Other: Weight 144 kg Patient Weight 03/11/17 23:59 Weight 144 kg - VTE Documentation of Mechanical Device: Intermittent pneumatic compression device Consult Discharge Plan - Plan Referrals: Lily Chairez CNP [Primary Care Provider] - 03/20/17 1:30 pm Asia Ceron PAC [Physician Canvas Cutter Hand] - 03/21/17 11:00 am Robi Felix CNP [Advanced Practice Nurse] - Prescriptions: Cyclobenzaprine [Flexeril] 10 mg PO Q6H PRN #30 tablet PRN Reason: Spasms diazePAM [Valium] 10 mg PO TID PRN #30 tablet PRN Reason: Spasms OxyCODONE Immed Rel [Roxicodone 5 MG] 5 mg PO Q4HR PRN #30 tablet PRN Reason: Severe Pain 7-10
[2017-03-11] MEDS: Gabapentin 300 MG CAPSULE PO SCH ×3 (07:58→20:50)
[2017-03-11] MEDS: Famotidine 20 MG TABLET PO SCH ×2 (07:58→20:50)
[2017-03-11] MEDS: Lisinopril-HCTZ 20-12.5mg TABLET PO SCH (08:13)
[2017-03-11] MEDS: *HR* OxyCODONE Immed Rel 5 MG TABLET PO PRN ×3 (10:45→19:31)
--- NOTE | 2017-03-11 11:12 | Neurology Progress Note ---
Date of Encounter: 03/11/17 Time of Encounter: 11:09 Assessment and Plan (1) Cauda equina syndrome Status: Acute Overall speaking symptoms slightly improved again but tend to fluctuate during the day, is now able to wiggle the right toes, and paresthesia involving both feet and lower legs are improving subjectively. Pain is still severe and may contribute to his weakness. Not sure of his pre surgical baseline. Overall he is improving, although not significantly. Will recommend continue post surgical care and PT. will sign off at this time. please all if any questions Subjective Principal diagnosis: Lumbar stenosis, lumbar radiculopathy Interval history: Patient seen and examined. He is still complaining of significant back pain and radicular type of pain. But the numbness feeling in both legs is improving. He is able to wiggle his right toes and dorsiflex right foot but the left foot is still weak. Symptoms fluctuate and may be influenced by presence of pain. Able to feel the perineal area but has pressure feeling in his bladder. Objective - Constitutional Vitals: Temp Pulse Resp BP Pulse Ox 98.2 F 116 16 110/66 91 03/11/17 09:15 03/11/17 09:15 03/11/17 09:15 03/11/17 09:15 03/11/17 09:15 - Neurological Exam Sensorimotor examination: Present: other (Patient has reduced pinprick and touch vibration senses at the feet bilaterally. Has elastic stocking both sides) Motor Examination: Present: other (Patient has difficult with dorsiflexion and plantar extension on both side, no weakness in hip flexion bilaterally. Able to move his feet slightly more to the right foot) Motor examination - left side: 1/5: deltoids, tibialis Anterior, 2/5: toe extension (EHL), plantarflexion Sensation intact: Present: other (Reduced pinprinck, vibration senses and touch bilaterally at the feet up to the calf region) Mental Status Examination: Present: awake, alert, oriented to person, oriented to place, oriented to time, follows commands appropriately, answers questions appropriately, no agnosia, no aphasia, no aproxia Cranial nerve examination: Present: PERRL, EOMI, visual romero intact, corneal reflexes brisk symmetrically, sensory to face intact, mastication intact, no facial asymmetry is present, no dysarthria, hearing is intact symmetrically, soft palate elevates bilaterally upon phonation, gag reflex intact, flexes SCM and trapezius muscles symmetrically with full power, tongue protrudes midline, no atrophy or facial fasiculations present - VTE Documentation of Mechanical Device: Intermittent pneumatic compression device Consult Discharge Plan - Plan Referrals: Lily Chairez, NAMED ACCOUNT EXECUTIVE [Primary Care Provider] - 03/20/17 1:30 pm Asia Ceron PAC [Physician Outside Residential Sales Professional] - 03/21/17 11:00 am Robi Felix, NAMED ACCOUNT EXECUTIVE [Advanced Practice Nurse] - Prescriptions: OxyCODONE Immed Rel [Roxicodone 5 MG] 5 mg PO Q4HR PRN #30 tablet PRN Reason: Severe Pain 7-10 Cyclobenzaprine [Flexeril] 10 mg PO Q6H PRN #30 tablet PRN Reason: Spasms diazePAM [Valium] 10 mg PO TID PRN #30 tablet PRN Reason: Spasms
[2017-03-11] MEDS: Ondansetron 4 MG/2 ML VIAL IVP PRN (14:50)
[2017-03-11] MEDS: diazePAM 10 MG TABLET PO PRN (15:55)
[2017-03-11 17:24] LABS: Basophils # 0.1 K/mcL (0.0-0.2); Basophils % 0.4 %; Eosinophils # 0.1 K/mcL (0.0-0.6); Eosinophils % 0.7 %; Hematocrit 41.5 % (37.5-50.1); Hemoglobin 13.9 g/dL (12.9-16.9); Immature Granulocytes % 0.7 % (0-4); Lymphocytes # 2.3 K/mcL (0.6-4.6); Lymphocytes % 16.4 %; Mean Corpuscular HGB Conc 33.5 g/dL (31.6-35.5); Mean Corpuscular Hemoglobin 28.7 pg (28.0-33.3); Mean Corpuscular Volume 85.7 fL (83.0-100.0); Mean Platelet Volume 10.2 fL (9.4-12.4); Monocytes % 6.9 %; Neutrophils # 10.6 K/mcL (1.6-8.9); Platelet Count 268 K/mcL (140-400); Red Blood Count 4.84 M/mcL (4.19-5.50); Red Cell Distribution Width 13.1 % (11.5-14.5); Segmented Neutrophils % 74.9 %
[2017-03-11 17:37] LABS: BUN/Creatinine Ratio 19 (6-26); Blood Urea Nitrogen 18 mg/dL (8-26); Calcium 9.4 mg/dL (8.6-10.8); Carbon Dioxide 25 mEq/L (19-29); Chloride 101 mEq/L (98-109); Glucose 113 mg/dL (70-99); Osmolality,Calculated 289 (280-300); Potassium 3.9 mEq/L (3.5-4.5); Sodium 138 mEq/L (136-145); eGFR For African Americans > 60 (> 60); eGFR For Non-African Americans > 60 (> 60)
[2017-03-12] MEDS: *HR* OxyCODONE Immed Rel 5 MG TABLET PO PRN ×3 (02:33→19:39)
[2017-03-12 02:45] LABS: Bilirubin,Urine Negative (Negative); Blood,Urine Large (Negative); Clarity,Urine Cloudy (Clear); Color,Urine Dark Yellow (Yellow); Glucose,Urine (UA) Normal (Normal); Ketones,Urine Negative (Negative); Leukocyte Esterase,Urine Negative (Negative); Nitrite,Urine Negative (Negative); Protein,Urine Trace mg/dL (Neg-Trace); Specific Gravity,Urine > 1.030 (1.010-1.025); Urobilinogen,Urine Normal (Normal)
[2017-03-12 02:47] LABS: Bacteria,Urine None Seen per hpf (None-Few); Hyaline Casts,Urine None Seen per lpf (None-Few); RBC,Urine TNTC per hpf (0-3); Squamous Epithelial Cell,Urine None Seen per lpf (None-Few)
--- NOTE | 2017-03-12 06:49 | Orthopedics Progress Note ---
Date of Encounter: 03/12/17 Time of Encounter: 06:48 Subjective Principal diagnosis: Lumbar stenosis, lumbar radiculopathy Interval history: Patient seen this morning no new complaints by report Patient no change sensation intact though with minimal motor function on command. Patient seen by neurology of surgery felt to be improving. Dr. Chery to reevaluate in the morning. Objective Vital signs: Vital Signs Temp Pulse Resp BP Pulse Ox 03/12/17 06:33 98.0 F 87 18 121/76 93 03/12/17 00:30 98.2 F 101 19 127/77 97 03/11/17 19:55 98.5 F 118 18 123/78 98 03/11/17 16:38 98.0 F 114 22 119/76 93 03/11/17 09:15 98.2 F 116 16 110/66 91 Intake and Output 03/11/17 03/11/17 03/12/17 15:59 23:59 07:59 Intake Total 820 / 820 500 / 500 Output Total 350 / 350 500 / 500 Balance 470 / 470 500 / 500 -500 / -500 Intake: Oral 820 / 820 500 / 500 Output: Catheter 350 / 350 500 / 500 Other: Meal Lunch Percent of Meal Consumed 90% Weight 145.2 kg Patient Weight 03/12/17 23:59 Weight 145.2 kg - Labs CBC & BMP: 03/11/17 17:13 03/11/17 17:13 Labs: Abnormal lab results WBC 14.1 K/mcL (4.3-11.1) H 03/11/17 17:13 Neutrophils # 10.6 K/mcL (1.6-8.9) H 03/11/17 17:13 Glucose 113 mg/dL (70-99) H 03/11/17 17:13 Urine Clarity Cloudy (Clear) A 03/12/17 02:30 Ur Specific [place] > 1.030 (1.010-1.025) H 03/12/17 02:30 Urine Blood Large (Negative) H 03/12/17 02:30 Urine Microscopic RBC TNTC per hpf (0-3) H 03/12/17 02:30 Urine Microscopic WBC 3-5 per hpf (0-3) H 03/12/17 02:30 - VTE Documentation of Mechanical Device: Intermittent pneumatic compression device Consult Discharge Plan - Plan Referrals: Lily Chairez CNP [Primary Care Provider] - 03/20/17 1:30 pm Asia Ceron PAC [Physician Non Licensed Nuclear Equipment Operator] - 03/21/17 11:00 am Robi Felix CNP [Advanced Practice Nurse] - Prescriptions: Cyclobenzaprine [Flexeril] 10 mg PO Q6H PRN #30 tablet PRN Reason: Spasms diazePAM [Valium] 10 mg PO TID PRN #30 tablet PRN Reason: Spasms OxyCODONE Immed Rel [Roxicodone 5 MG] 5 mg PO Q4HR PRN #30 tablet PRN Reason: Severe Pain 7-10
[2017-03-12] MEDS: *HR* HYDROmorphone (PF) 1 MG/ML SYRINGE IVP PRN ×2 (06:57→17:33)
[2017-03-12] MEDS: Lisinopril-HCTZ 20-12.5mg TABLET PO SCH (09:17)
[2017-03-12] MEDS: Gabapentin 300 MG CAPSULE PO SCH ×3 (09:18→20:06)
[2017-03-12] MEDS: Famotidine 20 MG TABLET PO SCH ×2 (09:18→20:06)
[2017-03-12] MEDS: Ondansetron 4 MG/2 ML VIAL IVP PRN (09:19)
[2017-03-12] MEDS ORDERED: Ringers Solution, Lactated 1,000 ML ONE (14:14)
[2017-03-12] MEDS: Ringers Solution, Lactated 1,000 ML IVC SCH (14:20)
[2017-03-12] MEDS: *HR* Heparin 5,000 UNIT/ML VIAL SQ SCH (20:06)
[2017-03-12] MEDS: diazePAM 5 MG TABLET PO PRN (22:43)
[2017-03-13] MEDS: *HR* Heparin 5,000 UNIT/ML VIAL SQ SCH ×2 (04:12→17:04)
[2017-03-13] MEDS: *HR* OxyCODONE Immed Rel 5 MG TABLET PO PRN ×3 (04:12→13:31)
[2017-03-13] MEDS: Gabapentin 300 MG CAPSULE PO SCH ×3 (07:44→21:25)
[2017-03-13] MEDS: Lisinopril-HCTZ 20-12.5mg TABLET PO SCH (07:44)
[2017-03-13] MEDS: Famotidine 20 MG TABLET PO SCH (07:44)
[2017-03-13] MEDS: diazePAM 5 MG TABLET PO PRN ×2 (07:44→15:43)
[2017-03-13] MEDS ORDERED: *HR* Morphine 2 MG/ML SYRINGE IVP PRN (15:59)
[2017-03-13] MEDS: tiZANidine 4 MG TABLET PO PRN (17:04)
--- NOTE | 2017-03-13 19:43 | Urology - Consult Note ---
Date of Encounter: 03/13/17 Time of Encounter: 19:43 - Assessment and Plan (1) Incomplete bladder emptying Current Visit: Yes Status: Acute Assessment and plan: I discussed with the family that they incomplete bladder emptying may be multi factorial including 2 recent spinal surgeries, narcotic pain medication, limited mobility, sedation. Although he is at risk for a neurogenic bladder it is unlikely a permanent condition. I suspect he will regain the ability to urinate as he improves from a neurologic standpoint. I recommend keeping the indwelling catheter until he is much more mobile and ambulatory with minimal difficulty. At that time the catheter can be removed and he can attempt a voiding trial. It is okay of the catheter remains in place another week or 2. If the catheter is removed and he still has difficulty voiding I recommend teaching the patient self intermittent catheterization which can be performed at an office visit. Okay to make follow-up visit in a few weeks but the family was provided my office number if we're needed sooner. (2) Bladder spasms Current Visit: Yes Status: Acute Assessment and plan: We will start Levsin to help with bladder spasms which are likely from decompression of the bladder, the cath, and recent back surgery. Urology CN:HPI Consult date: 03/13/17 Reason for consult Urology: Other History of present illness: 21-year-old male who underwent a Laminectomy L4-S1 last week. He developed new urinary symptoms in the days postoperatively and underwent a repeat operation for neurologic changes which revealed a small hematoma. The catheter was placed last week and we found to have significant postvoid residual of 1000 mL. Catheter is remained in place since. He does have some bladder spasms. He did have a small amount of blood after the catheter was placed. Currently with limited mobility because of pain. Past Med Surg Social Fam HX - Past Medical History Medical history: GERD, hypertension, other Psychiatric history: no psych history - Social History Smoking Status: Never smoker Smokeless Tobacco Status: No Alcohol use: none Drug use: none Medications and Allergies Albuterol Sulfate [Ventolin Hfa] 2 puff IH Q4H PRN 03/07/17 [History] Lisinopril/Hydrochlorothiazide [Zestoretic 20-12.5 mg Tablet] 1 tab PO DAILY 11/14 [History] Ranitidine HCl [Zantac] 150 mg PO BID 03/07/17 [History] Cyclobenzaprine [Flexeril] 10 mg PO Q6H PRN #30 tablet 03/09/17 [Rx] OxyCODONE Immed Rel [Roxicodone 5 MG] 5 mg PO Q4HR PRN #30 tablet 03/09/17 [Rx] diazePAM [Valium] 10 mg PO TID PRN #30 tablet 03/09/17 [Rx] 3 Allergy/AdvReac Type Severity Reaction Status Date / Time No Known Allergies Allergy Verified 03/07/17 09:46 Review of Systems ROS unobtainable: other (Patient asleep and only briefly workup and then went back to sleep) Exam Initial Vital Signs Temp Pulse Resp BP Pulse Ox 98.8 F 100 18 143/83 97 03/07/17 09:33 03/07/17 09:33 03/07/17 09:33 03/07/17 09:33 03/07/17 09:33 - General physical appearance Present: no distress, no pain - Eyes Present: PERRL - ENT Present: normal nares - Neck Present: no masses - Respiratory Present: normal respiratory effort - Cardiovascular Cardiovascular exam IM: RRR - Abdomen Abdomen: Present: soft (obese) - Integumentary Present: no rash, no growths - Neurologic Absent: disoriented, confused - Additional Findings Catheter with clear urine Urology Results - Labs 03/11/17 17:13 03/11/17 17:13 Abnormal lab results WBC 14.1 K/mcL (4.3-11.1) H 03/11/17 17:13 Neutrophils # 10.6 K/mcL (1.6-8.9) H 03/11/17 17:13 Glucose 113 mg/dL (70-99) H 03/11/17 17:13 Urine Clarity Cloudy (Clear) A 03/12/17 02:30 Ur Specific [place] > 1.030 (1.010-1.025) H 03/12/17 02:30 Urine Blood Large (Negative) H 03/12/17 02:30 Urine Microscopic RBC TNTC per hpf (0-3) H 03/12/17 02:30 Urine Microscopic WBC 3-5 per hpf (0-3) H 03/12/17 02:30 All other labs normal. Consult Discharge Plan - Plan Referrals: Lily Chairez, PROJECT MANAGER SENIOR [Primary Care Provider] - 03/20/17 1:30 pm Asia Ceron, PAC [Physician Senior Engineering Tech] - 03/21/17 11:00 am Robi Felix, NABEEL [Advanced Practice Nurse] -
[2017-03-13] MEDS ORDERED: Hyoscyamine SL 0.125 MG TAB.SUBL SL PRN (19:50)
[2017-03-14 01:26] LABS: Hematocrit 37.1 % (37.5-50.1); Hemoglobin 12.6 g/dL (12.9-16.9)
[2017-03-14] MEDS: *HR* Heparin 5,000 UNIT/ML VIAL SQ SCH ×2 (04:41→18:43)
[2017-03-14] MEDS: *HR* OxyCODONE Immed Rel 5 MG TABLET PO PRN ×2 (07:16→20:22)
[2017-03-14] MEDS: tiZANidine 4 MG TABLET PO PRN ×2 (09:04→20:23)
[2017-03-14] MEDS: Gabapentin 300 MG CAPSULE PO SCH ×3 (09:04→20:57)
[2017-03-14] MEDS: Lisinopril-HCTZ 20-12.5mg TABLET PO SCH (09:49)
[2017-03-14 13:25] LABS: BUN/Creatinine Ratio 21 (6-26); Blood Urea Nitrogen 28 mg/dL (8-26); Calcium 9.6 mg/dL (8.6-10.8); Carbon Dioxide 23 mEq/L (19-29); Chloride 97 mEq/L (98-109); Glucose 155 mg/dL (70-99); Osmolality,Calculated 279 (280-300); Potassium 4.1 mEq/L (3.5-4.5); eGFR For African Americans > 60 (> 60); eGFR For Non-African Americans > 60 (> 60)
[2017-03-14 13:26] LABS: Sodium 130 mEq/L (136-145)
[2017-03-14] MEDS ORDERED: 0.9 % Sodium Chloride 1,000 ML ONE (15:24)
--- NOTE | 2017-03-14 16:00 | Internal Medicine Consult Note ---
Date of Encounter: 03/14/17 Time of Encounter: 15:59 Internal Medicine - CN: HPI - Data of Consult Requesting Physician: Raulito Chery Jr MD - Consult Narrative History of present illness: Mr. Townsend is a 21 year old male Past Med Surg Social Fam HX - Past Medical History Medical history: GERD, hypertension, other Psychiatric history: no psych history - Social History Smoking Status: Never smoker Smokeless Tobacco Status: No Alcohol use: none Drug use: none Internal Medicine - CN: Meds Albuterol Sulfate [Ventolin Hfa] 2 puff IH Q4H PRN 03/07/17 [History] Lisinopril/Hydrochlorothiazide [Zestoretic 20-12.5 mg Tablet] 1 tab PO DAILY 11/14 [History] Ranitidine HCl [Zantac] 150 mg PO BID 03/07/17 [History] Cyclobenzaprine [Flexeril] 10 mg PO Q6H PRN #30 tablet 03/09/17 [Rx] OxyCODONE Immed Rel [Roxicodone 5 MG] 5 mg PO Q4HR PRN #30 tablet 03/09/17 [Rx] diazePAM [Valium] 10 mg PO TID PRN #30 tablet 03/09/17 [Rx] 3 Allergy/AdvReac Type Severity Reaction Status Date / Time No Known Allergies Allergy Verified 03/07/17 09:46 Internal Medicine - CN: Exam - Constitutional Vitals: Temp Pulse Resp BP Pulse Ox 99.3 F 112 20 77/42 96 03/14/17 15:10 03/14/17 15:10 03/14/17 15:10 03/14/17 15:10 03/14/17 15:10 Internal Medicine - CN: Reslt - Labs CBC & Chem 7: 03/14/17 00:57 03/14/17 13:05 Labs: Short CBC 03/14/17 Range/Units 00:57 Hgb 12.6 L (12.9-16.9) g/dL Hct 37.1 L (37.5-50.1) % BMP 03/14/17 13:05 Sodium 130 L D Potassium 4.1 Chloride 97 L Carbon Dioxide 23 BUN 28 H D Creatinine 1.32 H Glucose 155 H Calcium 9.6 Consult Discharge Plan - Plan Referrals: Lily Chairez CNP [Primary Care Provider] - 03/20/17 1:30 pm Asia Ceron, PAC [Physician Artificial Limb Maker] - 03/21/17 11:00 am Robi Felix, NABEEL [Advanced Practice Nurse] -
[2017-03-14 16:39] LABS: Basophils # 0.1 K/mcL (0.0-0.2); Basophils % 0.4 %; Eosinophils # 0.1 K/mcL (0.0-0.6); Eosinophils % 0.7 %; Hematocrit 35.3 % (37.5-50.1); Hemoglobin 11.9 g/dL (12.9-16.9); Immature Granulocytes % 3.8 % (0-4); Lymphocytes # 2.1 K/mcL (0.6-4.6); Lymphocytes % 10.8 %; Mean Corpuscular HGB Conc 33.7 g/dL (31.6-35.5); Mean Corpuscular Hemoglobin 28.4 pg (28.0-33.3); Mean Corpuscular Volume 84.2 fL (83.0-100.0); Mean Platelet Volume 10.5 fL (9.4-12.4); Monocytes # 2.4 K/mcL (0.0-1.3); Monocytes % 12.4 %; Neutrophils # 13.8 K/mcL (1.6-8.9); Nucleated Red Blood Cells 0.1 /100 WBC (0); Platelet Count 250 K/mcL (140-400); Red Blood Count 4.19 M/mcL (4.19-5.50); Red Cell Distribution Width 13.4 % (11.5-14.5); Segmented Neutrophils % 71.9 %
--- NOTE | 2017-03-14 16:58 | Spine Progress Note ---
Date of Encounter: 03/13/17 Time of Encounter: 13:10 - Assessment and Plan (1) Lumbar stenosis without neurogenic claudication Current Visit: No Status: Chronic (2) Lumbar radiculopathy Current Visit: No Status: Chronic Subjective Principal diagnosis: Lumbar stenosis, lumbar radiculopathy Interval history: The patient complains of significant bladder pain and is poorly mobilizing. He has indwelling Carroll catheter. Has had some pain control issues.. Afebrile vital signs are stable. Incision is clean dry and intact. Neurovascularly intact with regard to bilateral lower extremities. Stable. We will plan urology consult for management of bladder spasms and length of indwelling Carroll catheter. We will try to wean off intravenous narcotics. Rehabilitation consultation with case management. Objective Vital signs: Vital Signs Temp Pulse Resp BP Pulse Ox 03/14/17 16:50 93 03/14/17 15:10 99.3 F 112 20 77/42 96 03/14/17 11:27 98.8 F 101 16 93/61 95 03/14/17 06:47 98.7 F 120 16 107/72 93 03/14/17 04:37 99.1 F 124 18 105/56 93 03/14/17 02:41 99.1 F 113 18 81/49 93 03/14/17 01:48 99.3 F 117 18 83/47 93 03/14/17 00:44 99.0 F 123 18 85/45 92 03/13/17 23:32 99.1 F 124 20 97/58 93 03/13/17 19:17 98.9 F 135 20 100/65 93 Intake and Output 03/14/17 03/14/17 03/14/17 07:59 15:59 23:59 Output Total 0 / 0 500 / 500 Balance 0 / 0 -500 / -500 Output: Catheter 0 / 0 500 / 500 - Labs CBC & BMP: 03/14/17 16:29 03/14/17 13:05 Labs: Abnormal lab results WBC 19.2 K/mcL (4.3-11.1) H 03/14/17 16:29 Hgb 11.9 g/dL (12.9-16.9) L 03/14/17 16:29 Hct 35.3 % (37.5-50.1) L 03/14/17 16:29 Neutrophils # 13.8 K/mcL (1.6-8.9) H 03/14/17 16:29 Monocytes # 2.4 K/mcL (0.0-1.3) H 03/14/17 16:29 Nucleated RBCs/100 WBC 0.1 /100 WBC (0) H 03/14/17 16:29 Sodium 130 mEq/L (136-145) L D 03/14/17 13:05 Chloride 97 mEq/L (98-109) L 03/14/17 13:05 BUN 28 mg/dL (8-26) H D 03/14/17 13:05 Creatinine 1.32 mg/dL (0.72-1.25) H 03/14/17 13:05 Glucose 155 mg/dL (70-99) H 03/14/17 13:05 Calculated Osmolality 279 (280-300) L 03/14/17 13:05 Urine Clarity Cloudy (Clear) A 03/12/17 02:30 Ur Specific [place] > 1.030 (1.010-1.025) H 03/12/17 02:30 Urine Blood Large (Negative) H 03/12/17 02:30 Urine Microscopic RBC TNTC per hpf (0-3) H 03/12/17 02:30 Urine Microscopic WBC 3-5 per hpf (0-3) H 03/12/17 02:30 Consult Discharge Plan - Plan Referrals: Lily Chairez MINER ASSISTANT [Primary Care Provider] - 03/20/17 1:30 pm Asia Ceron PAC [Physician Production Support Specialist] - 03/21/17 11:00 am Robi Felix MINER ASSISTANT [Advanced Practice Nurse] -
[2017-03-14] MEDS: 0.9 % Sodium Chloride 1,000 ML IVC SCH ×2 (17:05→19:39)
--- NOTE | 2017-03-14 17:15 | Spine Progress Note ---
Date of Encounter: 03/14/17 Time of Encounter: 17:13 - Assessment and Plan (1) Lumbar stenosis without neurogenic claudication Current Visit: No Status: Chronic (2) Lumbar radiculopathy Current Visit: No Status: Chronic Subjective Principal diagnosis: Lumbar stenosis, lumbar radiculopathy Interval history: The patient complains of significant bladder pain and is poorly mobilizing. He has indwelling Carroll catheter. Has had some pain control issues. Complains of diffuse pain throughout his body.. He is tachycardic in the 120s and has had blood pressures on the 90/40 range. Antihypertensive medication has been held. Incision is clean dry and intact. He has had no significant change in neurological status. Stable. We will plan hospitalist consult for management of hypotension, normal saline bolus, , CBC with differential. Urology recommends to keep Carroll in 2 weeks with a void trial at that time. Rehabilitation consultation with case management. Objective Vital signs: Vital Signs Temp Pulse Resp BP Pulse Ox 03/14/17 17:02 102/63 03/14/17 16:50 93 03/14/17 15:10 99.3 F 112 20 77/42 96 03/14/17 11:27 98.8 F 101 16 93/61 95 03/14/17 06:47 98.7 F 120 16 107/72 93 03/14/17 04:37 99.1 F 124 18 105/56 93 03/14/17 02:41 99.1 F 113 18 81/49 93 03/14/17 01:48 99.3 F 117 18 83/47 93 03/14/17 00:44 99.0 F 123 18 85/45 92 03/13/17 23:32 99.1 F 124 20 97/58 93 03/13/17 19:17 98.9 F 135 20 100/65 93 Intake and Output 03/14/17 03/14/17 03/14/17 07:59 15:59 23:59 Output Total 0 / 0 500 / 500 Balance 0 / 0 -500 / -500 Output: Catheter 0 / 0 500 / 500 - Labs CBC & BMP: 03/14/17 16:29 03/14/17 13:05 Labs: Abnormal lab results WBC 19.2 K/mcL (4.3-11.1) H 03/14/17 16:29 Hgb 11.9 g/dL (12.9-16.9) L 03/14/17 16:29 Hct 35.3 % (37.5-50.1) L 03/14/17 16:29 Neutrophils # 13.8 K/mcL (1.6-8.9) H 03/14/17 16:29 Monocytes # 2.4 K/mcL (0.0-1.3) H 03/14/17 16:29 Nucleated RBCs/100 WBC 0.1 /100 WBC (0) H 03/14/17 16:29 Sodium 130 mEq/L (136-145) L D 03/14/17 13:05 Chloride 97 mEq/L (98-109) L 03/14/17 13:05 BUN 28 mg/dL (8-26) H D 03/14/17 13:05 Creatinine 1.32 mg/dL (0.72-1.25) H 03/14/17 13:05 Glucose 155 mg/dL (70-99) H 03/14/17 13:05 Calculated Osmolality 279 (280-300) L 03/14/17 13:05 Urine Clarity Cloudy (Clear) A 03/12/17 02:30 Ur Specific [place] > 1.030 (1.010-1.025) H 03/12/17 02:30 Urine Blood Large (Negative) H 03/12/17 02:30 Urine Microscopic RBC TNTC per hpf (0-3) H 03/12/17 02:30 Urine Microscopic WBC 3-5 per hpf (0-3) H 03/12/17 02:30 Consult Discharge Plan - Plan Referrals: Lily Chairez CNP [Primary Care Provider] - 03/20/17 1:30 pm Asia Ceron PAC [Physician Residential Roofer Helper] - 03/21/17 11:00 am Robi Felix CNP [Advanced Practice Nurse] -
[2017-03-14] MEDS ORDERED: traMADol 50 MG TABLET PO ONE (17:42)
[2017-03-14] MEDS ORDERED: Vancomycin 2,000 MG in D5% in Water 250 ML IVPB SCH (18:00)
--- NOTE | 2017-03-14 19:38 | Internal Medicine Consult Note ---
Date of Encounter: 03/14/17 Time of Encounter: 15:45 - Assessment and Plan (1) Hypotension Current Visit: Yes Status: Acute Assessment and plan: Most likely related to volume depletion but will need to rule out infectious source. Recheck CBC. Fluid bolus. Check CXR, blood cx, Urine. Will start abx if any sign of infection found. Qualifiers: Hypotension type: other hypotension type Qualified Code(s): I95.89 - Other hypotension (2) Cauda equina syndrome Current Visit: No Status: Acute Assessment and plan: Per neurosurgery. (3) Bladder spasms Current Visit: Yes Status: Acute Assessment and plan: Noble in place. Internal Medicine - CN: HPI - Data of Consult Patient: new to practice Consult date: 03/14/17 Requesting Physician: Raulito Chery Jr MD - Consult Narrative Reason for consult: Hypotension History of present illness: Mr. Townsend is a 21 year old male with no med hx underwent lumbar laminectomy. Subsequently he developed cauda equina syndrome. Today he was noted to be hypotensive with systolic in 80s. Pt denies CP, SOB, cough, abd pain. He has noble placed recently. No fever or chills. Has not had BM in few days as well. Currently he is comfortable but depressed. Past Med Surg Social Fam HX - Past Medical History Medical history: GERD, hypertension, other Psychiatric history: no psych history - Past Surgical History Surgical History: other (laminectomy) - Social History Smoking Status: Never smoker Smokeless Tobacco Status: No Alcohol use: none Drug use: none - Family History Mother Living Status: Still Living All systems: reviewed and no additional remarkable complaints except as stated - Constitutional Constitutional: fatigue, malaise - Cardiovascular Cardiovascular ROS IM: as per HPI - Respiratory Respiratory: as per HPI - Gastrointestinal Gastrointestinal: as per HPI, constipation, no heartburn, no nausea - Genitourinary Genitourinary ROS male: urinary incontinence - Musculoskeletal Musculoskeletal ROS IM: limited range of motion, no numbness, no stiffness - Integumentary Integumentary IM: no erythema, no rash - Hematologic/Lymphatic Hematologic/Lymphatic: no easy bleeding Internal Medicine - CN: Meds Albuterol Sulfate [Ventolin Hfa] 2 puff IH Q4H PRN 03/07/17 [History] Lisinopril/Hydrochlorothiazide [Zestoretic 20-12.5 mg Tablet] 1 tab PO DAILY 11/14 [History] Ranitidine HCl [Zantac] 150 mg PO BID 03/07/17 [History] Cyclobenzaprine [Flexeril] 10 mg PO Q6H PRN #30 tablet 03/09/17 [Rx] OxyCODONE Immed Rel [Roxicodone 5 MG] 5 mg PO Q4HR PRN #30 tablet 03/09/17 [Rx] diazePAM [Valium] 10 mg PO TID PRN #30 tablet 03/09/17 [Rx] 3 Allergy/AdvReac Type Severity Reaction Status Date / Time No Known Allergies Allergy Verified 03/07/17 09:46 Internal Medicine - CN: Exam - Constitutional Vitals: Temp Pulse Resp BP Pulse Ox 98.8 F 124 18 98/56 94 03/14/17 18:33 03/14/17 18:33 03/14/17 18:33 03/14/17 18:33 03/14/17 18:33 General appearance IM: Present: A&O X 3, answers questions appropriately - Head Head exam: Present: atraumatic, normocephalic - Eye Eye exam: Present: EOMI, PERRL, conjuntiva pink - ENT ENT exam: Present: mucous membranes dry - Neck Neck exam general surgery: Absent: lymphadenopathy, nuchal rigidity, thyromegaly - Respiratory Respiratory exam: Present: CTAB Additional comments: Difficult exam due to pain with movement. - Cardiovascular Cardiovascular exam IM: Present: tachycardia. Absent: irregular rhythm, systolic murmur - GI/Abdominal GI/Abdominal exam IM: Present: normal bowel sounds, soft. Absent: tenderness - Extremities Exam Extremities exam IM: Present: warm. Absent: full ROM - Neurological Exam Neurological exam: Present: alert, oriented X3. Absent: no focal deficits, strengths equal and symetr throughout - Psychiatric Psychiatric exam: Present: depressed - Skin Skin exam IM: Present: dry, warm. Absent: rash Internal Medicine - CN: Reslt - Labs CBC & Chem 7: 03/14/17 16:29 03/14/17 13:05 Labs: Short CBC 03/14/17 03/14/17 Range/Units 00:57 16:29 WBC 19.2 H (4.3-11.1) K/mcL Hgb 12.6 L 11.9 L (12.9-16.9) g/dL Hct 37.1 L 35.3 L (37.5-50.1) % Plt Count 250 (140-400) K/mcL Neutrophils # 13.8 H (1.6-8.9) K/mcL BMP 03/14/17 13:05 Sodium 130 L D Potassium 4.1 Chloride 97 L Carbon Dioxide 23 BUN 28 H D Creatinine 1.32 H Glucose 155 H Calcium 9.6 - Impressions Impressions Chest X-Ray 03/14/17 15:58 IMPRESSION: Left lower lobe airspace disease could represent atelectasis or pneumonia D/ / Kirill Mead MD / Kirill Mead MD Interpreting Provider: Kirill Mead MD Consult Discharge Plan - Plan Referrals: Lily Chairez CNP [Primary Care Provider] - 03/20/17 1:30 pm Asia Ceron PAC [Physician Guidance Consultant] - 03/21/17 11:00 am Robi Felix CNP [Advanced Practice Nurse] -
[2017-03-14] MEDS ORDERED: Vancomycin 2,000 MG in D5% in Water 500 ML IVPB ONE (20:00)
[2017-03-14] MEDS: Piperacillin/Tazobactam 3.375 GM in D5% in Water 50 ML IVPB SCH (20:55)
[2017-03-14 21:30] LABS: Bilirubin,Urine Small (Negative); Blood,Urine Negative (Negative); Clarity,Urine Clear (Clear); Color,Urine Dark Yellow (Yellow); Glucose,Urine (UA) Normal (Normal); Ketones,Urine Negative (Negative); Leukocyte Esterase,Urine Negative (Negative); Nitrite,Urine Negative (Negative); PH,Urine 5.5 pH Units (5.0-8.0); Protein,Urine Negative (Neg-Trace); Urobilinogen,Urine Normal (Normal)
[2017-03-14] MEDS: diazePAM 5 MG TABLET PO PRN (23:28)
[2017-03-15] MEDS: 0.9 % Sodium Chloride 1,000 ML IVC SCH ×3 (02:05→16:02)
[2017-03-15] MEDS: Piperacillin/Tazobactam 3.375 GM in D5% in Water 50 ML IVPB SCH ×3 (04:24→17:13)
[2017-03-15] MEDS: *HR* Heparin 5,000 UNIT/ML VIAL SQ SCH ×2 (04:24→17:12)
[2017-03-15 09:06] LABS: Hematocrit 33.4 % (37.5-50.1); Immature Platelets 7.1 % (1.1-6.1); Mean Corpuscular HGB Conc 32.9 g/dL (31.6-35.5); Mean Corpuscular Hemoglobin 28.1 pg (28.0-33.3); Mean Corpuscular Volume 85.4 fL (83.0-100.0); Mean Platelet Volume 10.2 fL (9.4-12.4); Red Blood Count 3.91 M/mcL (4.19-5.50); Red Cell Distribution Width 13.6 % (11.5-14.5)
[2017-03-15 09:07] LABS: BUN/Creatinine Ratio 23 (6-26); Blood Urea Nitrogen 19 mg/dL (8-26); Calcium 8.6 mg/dL (8.6-10.8); Carbon Dioxide 22 mEq/L (19-29); Chloride 102 mEq/L (98-109); Glucose 126 mg/dL (70-99); Magnesium 1.8 mg/dL (1.7-2.2); Osmolality,Calculated 276 (280-300); Sodium 131 mEq/L (136-145); eGFR For African Americans > 60 (> 60); eGFR For Non-African Americans > 60 (> 60)
[2017-03-15] MEDS: Lisinopril-HCTZ 20-12.5mg TABLET PO SCH (09:17)
[2017-03-15] MEDS: Gabapentin 300 MG CAPSULE PO SCH ×3 (09:17→19:57)
[2017-03-15] MEDS: *HR* OxyCODONE Immed Rel 5 MG TABLET PO PRN ×3 (09:18→17:12)
[2017-03-15] MEDS: Vancomycin 1,500 MG in D5% in Water 250 ML IVPB SCH ×2 (09:31→19:58)
[2017-03-15] MEDS: *HR* Morphine 2 MG/ML SYRINGE IVP PRN ×3 (10:11→18:01)
[2017-03-15] MEDS: tiZANidine 4 MG TABLET PO PRN ×2 (12:22→23:09)
[2017-03-15] MEDS: Ondansetron 4 MG/2 ML VIAL IVP PRN (12:22)
--- NOTE | 2017-03-15 12:57 | Internal Med Progress Note ---
Date of Encounter: 03/15/17 Time of Encounter: 08:45 - Assessment and plan (1) Cauda equina syndrome Current Visit: Yes Status: Acute Assessment and plan: Appears to be improving. Patient is regaining strength in his lower extremities. Still has Carroll in place. Continue management per spine surgery recommendations. (2) Hypotension Current Visit: Yes Status: Resolved Assessment and plan: From volume depletion. Appears to be improving. Renal function has normalized. Qualifiers: Hypotension type: other hypotension type Qualified Code(s): I95.89 - Other hypotension (3) Leukocytosis Current Visit: Yes Status: Acute Assessment and plan: Most likely reactive. Improving. No clear signs of sepsis. Patient was started on antibiotics yesterday due to leukocytosis. Blood cultures have been sent. We will follow. Continue antibiotics for now. May stop antibiotics if cultures remain negative. Qualifiers: Leukocytosis type: other Qualified Code(s): D72.828 - Other elevated white blood cell count (4) Constipation Current Visit: Yes Status: Acute Assessment and plan: Patient on stool softeners. We will add Dulcolax. If patient develops nausea or vomiting, we will get KUB x-ray to look for any obstruction. Qualifiers: Constipation type: slow transit constipation Qualified Code(s): K59.01 - Slow transit constipation - Subjective Interval history: Patient is lying in bed. Appears comfortable. Complains mainly of his back pain and stiffness in his lower extremities. Has Carroll catheter in place. Has not had a bowel movement since yesterday. No fever or chills. Unable to wiggle his toes but has good motion around his ankle and knee in both lower extremities. - Constitutional Vitals: Temp Pulse Resp BP Pulse Ox 98.8 F 110 18 126/73 99 03/15/17 06:18 03/15/17 06:18 03/15/17 06:18 03/15/17 06:18 03/15/17 06:18 General appearance: Present: A&O X 3, answers questions appropriately - Respiratory Respiratory exam: Present: CTAB. Absent: accessory muscle use, rales, rhonchi, wheezes - Cardiovascular Cardiovascular exam: Present: RRR, +S1, +S2. Absent: diastolic murmur, gallop, rubs, systolic murmur - GI/Abdominal GI/Abdominal exam: Present: normal bowel sounds, soft, no peritoneal signs. Absent: distended, tenderness - Extremities Exam Extremities exam: Present: warm, radial pulses palpable and symmetrical. Absent : calf tenderness, cyanotic, pedal edema - Neurological Exam Neurological exam: Present: CN II-XII intact, oriented X3. Absent: facial droop , speech deficit Additional comments: Normal sensation in all 4 extremities. Has good strength in all 4 extremities but unable to wiggle his toes. - Skin Skin exam: Present: dry, intact Internal Medicine: Result - Labs CBC & Chem 7: 03/15/17 08:55 03/15/17 08:46 Labs: Short CBC 03/14/17 03/15/17 Range/Units 16:29 08:55 WBC 19.2 H 16.5 H (4.3-11.1) K/mcL Hgb 11.9 L 11.0 L (12.9-16.9) g/dL Hct 35.3 L 33.4 L (37.5-50.1) % Plt Count 250 236 (140-400) K/mcL Neutrophils # 13.8 H (1.6-8.9) K/mcL BMP 03/14/17 03/15/17 13:05 08:46 Sodium 130 L D 131 L Potassium 4.1 4.0 Chloride 97 L 102 Carbon Dioxide 23 22 BUN 28 H D 19 Creatinine 1.32 H 0.84 Glucose 155 H 126 H Calcium 9.6 8.6 Urine 03/14/17 Range/Units 21:26 Urine Color Dark Yellow (Yellow) Urine Clarity Clear (Clear) Urine pH 5.5 (5.0-8.0) pH Units Ur Specific [place] 1.030 H (1.010-1.025) Urine Protein Negative (Neg-Trace) mg/dL Urine Glucose (UA) Normal (Normal) mg/dL - Impressions Impressions Chest X-Ray 03/14/17 15:58 IMPRESSION: Left lower lobe airspace disease could represent atelectasis or pneumonia D/ / Kirill Mead MD / Kirill Mead MD Interpreting Provider: Kirill Mead MD - VTE Documentation of Mechanical Device: Intermittent pneumatic compression device Consult Discharge Plan - Plan Referrals: Lily Chairez, HEALTHCARE CONSULTANT [Primary Care Provider] - 03/20/17 1:30 pm Asia Ceron, PAC [Physician Clinical Academic Allergist] - 03/21/17 11:00 am Robi Felix, NABEEL [Advanced Practice Nurse] -
--- NOTE | 2017-03-15 13:09 | Electrocardiograph Report ---
[place] [id number] Test Date: 2017-03-14 Pat Name: Sheryl Townsend Department: 114 Room: [facility] Gender: M Sock Liner: : 1995 Requested By: [place] Order Number: [id number] Reading MD: Heath Mcdonald MD Measurements Intervals [place] Rate: 121 P: 7 TN: 136 QRS: 11 QRSD: 101 T: 11 QT: 338 QTc: 410 Interpretive Statements SINUS TACHYCARDIA Electronically Signed On 03-15-2017 13:08:31 EST by Heath Mcdonald MD
[2017-03-15] MEDS ORDERED: Piperacillin/Tazobactam 3.375 GM in D5% in Water 50 ML IVPB SCH (18:00)
--- NOTE | 2017-03-15 19:08 | Neurology Progress Note ---
Date of Encounter: 03/15/17 Time of Encounter: 19:02 Assessment and Plan (1) Cauda equina syndrome Current Visit: Yes Status: Acute Persistent weakness involving distal limbs mainly at the level o f L4-L5 bilaterally, s/p lumbar laminectomy 8 days ago. Has quite significant lumbar stenosis to begin with. Sensory function has been steadily improving but motor function deficits persisted with loss of DTRs at the knees and ankles. Will obtain repeat MRI of lumbar spine as well T-spine, with and without contrast. Discussed with Dr. Raulito Chery. Will review images once available. Continue medical care via medical team. Certainly would need PT/OT. Subjective Principal diagnosis: Lumbar stenosis, lumbar radiculopathy Interval history: Patient is seen and examined at the request of Raulito Shore for evaluation of lingering and even worsening feet and leg weakness, s/p lumbar laminectomy L4 -L5 level and re-exploration of hematoma, POD# 5. Patient has been improving in terms of his sensory function and is able to feel his feet and perineal region and legs. The sensory function has been improving every day although slowly but the motor weakness has persisted and actually worse both sides, although the left leg and feet weakness is weaker to begin with even prior to surgery. He could not wiggle his toes bilaterally. He is able to life his legs off the bed with efforts. Is still using urinary catheter. Pain is mainly at the right groin area but if moving the left leg, the pain is at the left knee. Objective - Constitutional Vitals: Temp Pulse Resp BP Pulse Ox 98.8 F 118 18 103/46 99 03/15/17 06:18 03/15/17 14:21 03/15/17 06:18 03/15/17 14:21 03/15/17 06:18 - Neurological Exam Sensorimotor examination: Present: other (Able to feel pinprick, needle stick vibration senses bilaterally, improved) Motor Examination: Present: other (Patient has difficult with dorsiflexion and plantar extension on both side, no weakness in hip flexion bilaterally. Able to move his feet slightly more to the right foot) Motor examination - right side: 1/5: toe extension (EHL), plantarflexion, 3/5: quadriceps, 4/5: hip flexors, tibialis Anterior, 5/5: deltoids, biceps, triceps , wrist flexion, wrist extension, senior merchandiser Motor examination - left side: 1/5: toe extension (EHL), plantarflexion, 3/5: tibialis Anterior, 4/5: quadriceps, 5/5: deltoids, biceps, triceps, wrist flexion, wrist extension, hip flexors, senior merchandiser Sensation intact: Present: other (Sensory funciton improved. Able to feel needle stick, tunning forks and temperature bilaterally) Reflexes: Biceps: 1+, Triceps: 1+, Brachioradialis: 1+, Patella: 0, Achilles: 0 Mental Status Examination: Present: awake, alert, oriented to person, oriented to place, oriented to time, follows commands appropriately, answers questions appropriately, no agnosia, no aphasia, no aproxia Cranial nerve examination: Present: PERRL, EOMI, visual romero intact, corneal reflexes brisk symmetrically, sensory to face intact, mastication intact, no facial asymmetry is present, no dysarthria, hearing is intact symmetrically, soft palate elevates bilaterally upon phonation, gag reflex intact, flexes SCM and trapezius muscles symmetrically with full power, tongue protrudes midline, no atrophy or facial fasiculations present - VTE Documentation of Mechanical Device: Intermittent pneumatic compression device Results - Laboratory Findings CBC and BMP: 03/15/17 08:55 03/15/17 08:46 Abnormal lab findings: Abnormal lab results WBC 16.5 K/mcL (4.3-11.1) H 03/15/17 08:55 RBC 3.91 M/mcL (4.19-5.50) L 03/15/17 08:55 Hgb 11.0 g/dL (12.9-16.9) L 03/15/17 08:55 Hct 33.4 % (37.5-50.1) L 03/15/17 08:55 Neutrophils # 13.8 K/mcL (1.6-8.9) H 03/14/17 16:29 Monocytes # 2.4 K/mcL (0.0-1.3) H 03/14/17 16:29 Nucleated RBCs/100 WBC 0.1 /100 WBC (0) H 03/14/17 16:29 Immature Plt Fraction 7.1 % (1.1-6.1) H 03/15/17 08:55 Sodium 131 mEq/L (136-145) L 03/15/17 08:46 Glucose 126 mg/dL (70-99) H 03/15/17 08:46 Calculated Osmolality 276 (280-300) L 03/15/17 08:46 Ur Specific [place] 1.030 (1.010-1.025) H 03/14/17 21:26 Urine Bilirubin Small (Negative) H 03/14/17 21:26 Urine Microscopic RBC TNTC per hpf (0-3) H 03/12/17 02:30 Urine Microscopic WBC 3-5 per hpf (0-3) H 03/12/17 02:30 Consult Discharge Plan - Plan Referrals: Lily Chairez TARIFF PUBLISHING AGENT [Primary Care Provider] - 03/20/17 1:30 pm Asia Ceron PAC [Physician Sheet Metal Operator] - 03/21/17 11:00 am Robi Felix TARIFF PUBLISHING AGENT [Advanced Practice Nurse] -
[2017-03-15] MEDS ORDERED: *HR* Morphine 2 MG/ML SYRINGE IVP ONE (19:50)
[2017-03-15] MEDS: diazePAM 5 MG TABLET PO PRN (19:57)
[2017-03-16] MEDS: *HR* OxyCODONE Immed Rel 5 MG TABLET PO PRN ×5 (02:58→22:28)
[2017-03-16] MEDS: *HR* Heparin 5,000 UNIT/ML VIAL SQ SCH ×2 (06:56→18:07)
[2017-03-16] MEDS ORDERED: Piperacillin/Tazobactam 3.375 GM in D5% in Water 50 ML IVPB SCH (07:00)
[2017-03-16] MEDS: Lisinopril-HCTZ 20-12.5mg TABLET PO SCH (08:07)
[2017-03-16] MEDS: Gabapentin 300 MG CAPSULE PO SCH ×3 (08:07→20:08)
[2017-03-16] MEDS: 0.9 % Sodium Chloride 1,000 ML IVC SCH (08:08)
[2017-03-16] MEDS: *HR* Morphine 2 MG/ML SYRINGE IVP PRN (08:58)
[2017-03-16] MEDS ORDERED: Aminoglycoside Consult 1 EACH MC ONE (09:38)
[2017-03-16] MEDS ORDERED: Vancomycin 1,250 MG in D5% in Water 250 ML IVPB SCH (12:00)
[2017-03-16] MEDS: tiZANidine 4 MG TABLET PO PRN ×2 (12:05→20:08)
[2017-03-16 12:31] LABS: Eosinophils # 0.2 K/mcL (0.0-0.6); Hematocrit 34.5 % (37.5-50.1); Hemoglobin 11.3 g/dL (12.9-16.9); Mean Corpuscular HGB Conc 32.8 g/dL (31.6-35.5); Mean Corpuscular Hemoglobin 28.3 pg (28.0-33.3); Mean Corpuscular Volume 86.3 fL (83.0-100.0); Mean Platelet Volume 10.8 fL (9.4-12.4); Platelet Count 294 K/mcL (140-400); Red Cell Distribution Width 13.7 % (11.5-14.5)
[2017-03-16 12:44] LABS: BUN/Creatinine Ratio 20 (6-26); Blood Urea Nitrogen 29 mg/dL (8-26); Calcium 9.3 mg/dL (8.6-10.8); Carbon Dioxide 20 mEq/L (19-29); Chloride 101 mEq/L (98-109); Glucose 123 mg/dL (70-99); Osmolality,Calculated 281 (280-300); Potassium 3.6 mEq/L (3.5-4.5); Sodium 132 mEq/L (136-145); eGFR For African Americans > 60 (> 60); eGFR For Non-African Americans > 60 (> 60)
[2017-03-16 13:16] LABS: Lymphocytes # 2.1 K/mcL (0.6-4.6); Monocytes # 2.8 K/mcL (0.0-1.3); Neutrophils # 10.7 K/mcL (1.6-8.9)
[2017-03-16 13:17] LABS: Platelet Estimate Normal (Normal); Reactive Lymphocytes Present (Not Present); Toxic Granulation Present (Not Present); Toxic Vacuolation Present (Not Present)
--- NOTE | 2017-03-16 15:20 | Event Note ---
Date of Encounter: 03/16/17 Time of Encounter: 12:30 Patient evaluated this afternoon. Blood work shows WBC count of 16.2 with 8% bands. Most likely reactive as patient does not exhibit any signs of infection. No fever. No signs of sepsis. MRI of the lumbar spine reviewed. Postsurgical findings with gas and fluid collection in the deep subcutaneous incisional soft tissues noted without any abutment of the thecal sac. Discussed with spine surgery. Findings not concerning at this time for abscess. Patient is being discharged to skilled rehabilitation for spinal cord injury. Renal function abnormal today. Likely due to use of Prinzide. Would recommend stopping this medication and having his basic panel checked in couple of days to look for improvement in renal function. Patient has been receiving IV fluids. Encouraged oral hydration. From a medical standpoint, stable for discharge with follow up outpatient with primary care provider to address medical issues including follow-up for resolution of acute kidney injury and leukocytosis. No further indication for antibiotics at this time. We will stop antibiotics. However, if patient were to develop fever, chills or other signs of acute infection, he is advised to return to ER immediately.
[2017-03-17] MEDS: *HR* OxyCODONE Immed Rel 5 MG TABLET PO PRN ×4 (05:03→23:09)
[2017-03-17] MEDS: *HR* Heparin 5,000 UNIT/ML VIAL SQ SCH ×2 (05:12→18:05)
[2017-03-17 05:37] LABS: BUN/Creatinine Ratio 22 (6-26); Blood Urea Nitrogen 34 mg/dL (8-26); Calcium 8.9 mg/dL (8.6-10.8); Carbon Dioxide 25 mEq/L (19-29); Chloride 101 mEq/L (98-109); Glucose 126 mg/dL (70-99); Osmolality,Calculated 281 (280-300); Potassium 3.4 mEq/L (3.5-4.5); Sodium 131 mEq/L (136-145); eGFR For African Americans > 60 (> 60); eGFR For Non-African Americans 57 (> 60)
[2017-03-17 08:44] LABS: Hematocrit 29.4 % (37.5-50.1); Mean Corpuscular HGB Conc 32.7 g/dL (31.6-35.5); Mean Corpuscular Hemoglobin 28.6 pg (28.0-33.3); Mean Corpuscular Volume 87.5 fL (83.0-100.0); Platelet Count 274 K/mcL (140-400); Red Blood Count 3.36 M/mcL (4.19-5.50); Red Cell Distribution Width 13.8 % (11.5-14.5)
[2017-03-17 08:46] LABS: Hemoglobin 9.6 g/dL (12.9-16.9)
[2017-03-17 09:03] LABS: Platelet Estimate Normal (Normal); Polychromasia 1+ (Not Present)
[2017-03-17] MEDS: Gabapentin 300 MG CAPSULE PO SCH ×3 (09:41→20:38)
[2017-03-17] MEDS: 0.9 % Sodium Chloride 1,000 ML IVC SCH ×2 (12:35→23:12)
--- NOTE | 2017-03-17 13:18 | Nephrology Consult Note ---
Date of Encounter: 03/17/17 Time of Encounter: 13:13 Assessment and Plan (1) Acute kidney injury Current Visit: Yes Status: Acute The patient has multifactorial nonoliguric acute kidney injury that is likely the result of low blood pressure, a postoperative state, anemia in the face of SANG inhibitor and diuretic. I agree with holding his SANG inhibitor and diuretic. I also agree with administering intravenous fluids. I recommend holding nephrotoxins and adjusting medications for renal function. Fortunately it looks like his urine output has been increasing over the last few days so hopefully his renal function improves within the next 1-2 days. I will order a renal ultrasound, urine sodium, urine creatinine. If renal function does not improve then I will consider additional workup. (2) Anemia Current Visit: Yes Status: Acute Monitor for the need for blood transfusion. Additional workup on an outpatient basis if his hemoglobin is stabilized. Qualifiers: Qualified Code(s): D64.9 - Anemia, unspecified (3) Hypotension Current Visit: Yes Status: Resolved Agree with holding his antihypertensive medications. Also agree with intravenous saline. Monitor for infection. Qualifiers: Hypotension type: other hypotension type Qualified Code(s): I95.89 - Other hypotension (4) Leukocytosis Current Visit: Yes Status: Acute Monitor leukocytes. Monitor bandemia. No signs of systemic infection at this time. WBC is decreasing. Qualifiers: Leukocytosis type: other Qualified Code(s): D72.828 - Other elevated white blood cell count (5) Lumbar radiculopathy Current Visit: No Status: Chronic Per primary service. History of Present Illness - Reason for Consult Consult date: 03/17/17 Acute Kidney Injury - Chief Complaint GISSELL - History of Present Illness Mr. Townsend is a 21 -year-old man who presented for spinal surgery that was complicated by a post op hematoma. He developed post procedure hypotension and there was concern for possible sepsis so he was started on empiric antibiotic therapy. During his hospitalization he developed acute kidney injury and [facility] was consulted to evaluate his new acute kidney injury. The chart was reviewed and the patient's was interviewed. The patient reports he overall feels well. He is eating and drinking normally and denies nausea, vomiting, or diarrhea. He also denies rash. He denies a history of acute kidney injury. Past Med Surg Social Fam HX - Past Medical History Medical history: GERD, hypertension, other Psychiatric history: no psych history - Past Surgical History Surgical History: other (laminectomy) - Social History Smoking Status: Never smoker Smokeless Tobacco Status: No Alcohol use: none Drug use: none - Family History Mother Living Status: Still Living Medications and Allergies Albuterol Sulfate [Ventolin Hfa] 2 puff IH Q4H PRN 03/07/17 [History] Ranitidine HCl [Zantac] 150 mg PO BID 03/07/17 [History] Cyclobenzaprine [Flexeril] 10 mg PO Q6H PRN #30 tablet 03/09/17 [Rx] OxyCODONE Immed Rel [Roxicodone 5 MG] 5 mg PO Q4HR PRN #30 tablet 03/09/17 [Rx] diazePAM [Valium] 10 mg PO TID PRN #30 tablet 03/09/17 [Rx] 3 Allergy/AdvReac Type Severity Reaction Status Date / Time No Known Allergies Allergy Verified 03/07/17 09:46 Review of Systems All Systems: reviewed and no additional remarkable complaints except as stated ( As documented in history of present illness.) Exam - Vital Signs Vital signs: Initial Vital Signs Temp Pulse Resp BP Pulse Ox 98.8 F 100 18 143/83 97 03/07/17 09:33 03/07/17 09:33 03/07/17 09:33 03/07/17 09:33 03/07/17 09:33 Vital Signs - Last 8 Hours Temp Pulse Resp BP Pulse Ox 03/17/17 11:40 98.8 F 117 15 140/74 94 03/17/17 07:51 98.6 F 105 14 97/61 96 Intake and Output 03/16/17 03/17/17 03/17/17 23:59 07:59 15:59 Intake Total 240 / 240 0 / 0 Output Total 675 / 675 650 / 650 Balance -435 / -435 -650 / -650 0 / 0 Intake: Oral 240 / 240 0 / 0 Output: Urine 0 / 0 Catheter 675 / 675 650 / 650 Other: Meal Dinner Breakfast Percent of Meal Consumed 85% 0% - General Appearance General appearance: well-developed, well-nourished, obese EENT: ATNC Neck: supple Respiratory: clear Cardiology: no edema, regular rate, regular rhythm Gastrointestinal: no tenderness, obese Integumentary: warm and dry Neurologic: alert and oriented x3 Musculoskeletal: no cyanosis Psychiatric: mood/affect appropriate Results - Lab Results 03/17/17 05:07 03/17/17 05:07 Most recent lab results Calcium 8.9 mg/dL (8.6-10.8) 03/17/17 05:07 Magnesium 1.8 mg/dL (1.7-2.2) 03/15/17 08:46 Consult Discharge Plan - Plan Additional Instructions: Discharge Instructions: Lumbar Please call [facility] ([phone]), your Primary Care Physician, or report to the ER if you have any of the following symptoms: Fever greater that 101.5, increased pain/redness/drainage/odor for your incision site or any other concerning symptoms. ACTIVITY * May Shower * No Tub Baths * No lifting greater than 10 pounds * No Smoking * No Swimming * No off Ground Activities (Running, Climbing, Ladders, Horseback Riding) * No Driving * Wear Back Brace when up walking if lumbar fusion done MEDICATIONS: Upon discharge resume your home medications. Take all the medications as prescribed. Take a stool softener if taking narcotic pain medications. Stool softeners are only effective if you drink enough fluids. Drink 6-8 glass of water or fluids a day, unless this is not allowed for another health problem. Despite using stool softeners, if you haven't had a bowel movement in 3 days, please switch to a gentle laxative. Gentle laxatives are sold over the counter. You should have a bowel movement within 24 hours, if not call the office. You will be discharged from the hospital with a prescription for pain medication. You are encouraged to decrease the use of narcotic pain medication as tolerated. Should you require a refill, please call the office. It is best to call 48-72 hours in advance of needing a prescription refill so you don't run out of medication. WOUND CARE: Remove Dressing Tomorrow. Leave incision open to air. Pat dry when you get out of the shower. FOLLOW-UP: Please follow up with your surgeon in the orthopedic clinic in 2 weeks from the day of surgery. References: [employer] (www.[email or web address].org) Referrals: Lily Chairez CNP [Primary Care Provider] - 03/20/17 1:30 pm Asia Ceron PAC [Physician Cooker Pie Filling] - 04/04/17 10:00 am Robi Felix CNP [Advanced Practice Nurse] - Jeff Graham MD [Partnered Physician] - 04/03/17 2:15 pm
--- NOTE | 2017-03-17 15:12 | Event Note ---
Date of Encounter: 03/17/17 Time of Encounter: 08:00 Reviewed basic panel today. Creatinine remains elevated. Recommend consulted nephrology for their recommendations. WBC count is trending down. No further indication for antibiotics. Patient did have slight fever early this morning which improved after he used incentive spirometry. Prior chest x-ray has shown that he has atelectasis. At this time no further indications for antibiotics. We will sign off. Please call with any further questions.
[2017-03-17] MEDS: Ondansetron 4 MG/2 ML VIAL IVP PRN (16:16)
--- NOTE | 2017-03-17 16:46 | Spine Progress Note ---
Date of Encounter: 03/17/17 Time of Encounter: 16:43 - Assessment and Plan (1) Lumbar stenosis without neurogenic claudication Current Visit: No Status: Chronic (2) Lumbar radiculopathy Current Visit: No Status: Chronic Subjective Principal diagnosis: Lumbar stenosis, lumbar radiculopathy Interval history: The patient complains of significant bladder pain and is poorly mobilizing. He has indwelling Carroll catheter. Has had some pain control issues. He had a slight bump in his creatinine to the 1.5 level. The hospitalist service has suggested a nephrology consult which is been obtained. Incision is clean dry and intact. He has had no significant change in neurological status. Stable. Nephrology agrees with maintaining hydration status and discontinuing any nephrotoxic medication including blood pressure medication. He is likely to be discharged Monday, March 18 if his laboratories are stable or improved. Objective Vital signs: Vital Signs Temp Pulse Resp BP Pulse Ox 03/17/17 14:51 98.9 F 102 14 127/72 97 03/17/17 11:40 98.8 F 117 15 140/74 94 03/17/17 07:51 98.6 F 105 14 97/61 96 03/17/17 04:50 98.6 F 106 18 104/62 92 03/17/17 00:06 98.3 F 03/16/17 23:56 100 F H 91/57 03/16/17 23:19 101.0 F H 108 18 92/57 92 03/16/17 19:15 98.8 F 121 18 101/50 99 Intake and Output 03/17/17 03/17/17 03/17/17 07:59 15:59 23:59 Intake Total 240 / 240 Output Total 650 / 650 1700 / 1700 Balance -650 / -650 -1460 / -1460 Intake: Oral 240 / 240 Output: Catheter 650 / 650 1700 / 1700 Other: Meal Lunch Percent of Meal Consumed 0% - Labs CBC & BMP: 03/17/17 05:07 03/17/17 05:07 Labs: Abnormal lab results WBC 14.5 K/mcL (4.3-11.1) H 03/17/17 05:07 RBC 3.36 M/mcL (4.19-5.50) L 03/17/17 05:07 Hgb 9.6 g/dL (12.9-16.9) L D 03/17/17 05:07 Hct 29.4 % (37.5-50.1) L 03/17/17 05:07 Band Neutrophils % 8.0 % (0-4) H 03/16/17 12:19 Myelocytes % 3.0 % (0) H 03/16/17 12:19 Neutrophils # 11.0 K/mcL (1.6-8.9) H 03/17/17 05:07 Monocytes # 2.8 K/mcL (0.0-1.3) H 03/16/17 12:19 Nucleated RBCs/100 WBC 0.1 /100 WBC (0) H 03/14/17 16:29 Reactive Lymphocytes Present (Not Present) A 03/16/17 12:19 Toxic Granulation Present (Not Present) A 03/16/17 12:19 Toxic Vacuolation Present (Not Present) A 03/16/17 12:19 Immature Plt Fraction 7.1 % (1.1-6.1) H 03/15/17 08:55 Polychromasia 1+ (Not Present) A 03/17/17 05:07 Sodium 131 mEq/L (136-145) L 03/17/17 05:07 Potassium 3.4 mEq/L (3.5-4.5) L 03/17/17 05:07 BUN 34 mg/dL (8-26) H 03/17/17 05:07 Creatinine 1.55 mg/dL (0.72-1.25) H 03/17/17 05:07 Est GFR (Non-Af Amer) 57 (> 60) L 03/17/17 05:07 Glucose 126 mg/dL (70-99) H 03/17/17 05:07 Procalcitonin 0.34 ng/mL (<=0.10) H 03/14/17 16:29 Ur Specific [place] 1.030 (1.010-1.025) H 03/14/17 21:26 Urine Bilirubin Small (Negative) H 03/14/17 21:26 Urine Microscopic RBC TNTC per hpf (0-3) H 03/12/17 02:30 Urine Microscopic WBC 3-5 per hpf (0-3) H 03/12/17 02:30 Consult Discharge Plan - Plan Additional Instructions: Discharge Instructions: Lumbar Please call [facility] ([phone]), your Primary Care Physician, or report to the ER if you have any of the following symptoms: Fever greater that 101.5, increased pain/redness/drainage/odor for your incision site or any other concerning symptoms. ACTIVITY * May Shower * No Tub Baths * No lifting greater than 10 pounds * No Smoking * No Swimming * No off Ground Activities (Running, Climbing, Ladders, Horseback Riding) * No Driving * Wear Back Brace when up walking if lumbar fusion done MEDICATIONS: Upon discharge resume your home medications. Take all the medications as prescribed. Take a stool softener if taking narcotic pain medications. Stool softeners are only effective if you drink enough fluids. Drink 6-8 glass of water or fluids a day, unless this is not allowed for another health problem. Despite using stool softeners, if you haven't had a bowel movement in 3 days, please switch to a gentle laxative. Gentle laxatives are sold over the counter. You should have a bowel movement within 24 hours, if not call the office. You will be discharged from the hospital with a prescription for pain medication. You are encouraged to decrease the use of narcotic pain medication as tolerated. Should you require a refill, please call the office. It is best to call 48-72 hours in advance of needing a prescription refill so you don't run out of medication. WOUND CARE: Remove Dressing Tomorrow. Leave incision open to air. Pat dry when you get out of the shower. FOLLOW-UP: Please follow up with your surgeon in the orthopedic clinic in 2 weeks from the day of surgery. References: [employer] (www.[email or web address].org) Referrals: Lily Chairez CNP [Primary Care Provider] - 03/20/17 1:30 pm Asia Ceron PAC [Physician Cnc Service Engineer] - 04/04/17 10:00 am Robi Felix CNP [Advanced Practice Nurse] - Jeff Graham MD [Partnered Physician] - 04/03/17 2:15 pm
[2017-03-17] MEDS: tiZANidine 4 MG TABLET PO PRN (17:20)
[2017-03-17] MEDS: diazePAM 5 MG TABLET PO PRN (21:20)
[2017-03-18] MEDS: tiZANidine 4 MG TABLET PO PRN ×2 (04:21→15:48)
[2017-03-18] MEDS: *HR* OxyCODONE Immed Rel 5 MG TABLET PO PRN ×3 (05:13→16:43)
[2017-03-18] MEDS: *HR* Heparin 5,000 UNIT/ML VIAL SQ SCH (05:14)
[2017-03-18] MEDS: diazePAM 5 MG TABLET PO PRN (07:58)
[2017-03-18 08:08] LABS: BUN/Creatinine Ratio 20 (6-26); Calcium 8.7 mg/dL (8.6-10.8); Carbon Dioxide 21 mEq/L (19-29); Chloride 107 mEq/L (98-109); Glucose 121 mg/dL (70-99); Osmolality,Calculated 289 (280-300); Potassium 3.8 mEq/L (3.5-4.5); Sodium 137 mEq/L (136-145); eGFR For African Americans > 60 (> 60); eGFR For Non-African Americans > 60 (> 60)
[2017-03-18 08:12] LABS: Blood Urea Nitrogen 23 mg/dL (8-26)
[2017-03-18] MEDS: Gabapentin 300 MG CAPSULE PO SCH ×2 (09:05→15:48)
[2017-03-18] MEDS: 0.9 % Sodium Chloride 1,000 ML IVC SCH (09:06)
--- NOTE | 2017-03-18 10:59 | Nephrology Progress Note ---
Date of Encounter: 03/18/17 Time of Encounter: 10:54 - Assessment and Plan (1) Acute kidney injury Current Visit: Yes Status: Acute Resolved. Renal function approaching baseline. Ok for discharge from renal stand point. Follow- up with [facility] per his PCP. (2) Anemia Current Visit: Yes Status: Acute Per primary team. Qualifiers: Qualified Code(s): D64.9 - Anemia, unspecified (3) Hypotension Current Visit: Yes Status: Resolved Resolved. Qualifiers: Hypotension type: other hypotension type Qualified Code(s): I95.89 - Other hypotension (4) Tachycardia Current Visit: Yes Status: Acute Defer to primary team. Subjective Principal diagnosis: Lumbar stenosis, lumbar radiculopathy Interval history: Patient Objective - Vital Signs Vital signs: Vital Signs Temp Pulse Resp BP Pulse Ox 03/18/17 07:17 98.2 F 103 18 122/72 95 03/18/17 04:21 98.8 F 118 18 118/66 93 03/17/17 23:08 98.7 F 123 19 111/56 95 03/17/17 19:20 99.6 F 120 14 97/65 93 03/17/17 14:51 98.9 F 102 14 127/72 97 03/17/17 11:40 98.8 F 117 15 140/74 94 Intake and Output 03/17/17 03/18/17 03/18/17 23:59 07:59 15:59 Intake Total 1700 / 1700 850 / 850 1100 / 1100 Output Total 525 / 525 1400 / 1400 Balance 1175 / 1175 -550 / -550 1100 / 1100 Intake: IV Fluids 1000 / 1000 1000 / 1000 0.9 % Sodium Chloride 1,000 ML 1000 / 1000 1000 / 1000 @ 100 mls/hr IVC .Q10H [facility] Rx#: [id number] Oral 700 / 700 850 / 850 100 / 100 Output: Catheter 525 / 525 1400 / 1400 Other: Meal Breakfast Percent of Meal Consumed 100% - General Appearance General appearance: Present: well-developed, well-nourished, obese EENT: Present: ATNC Neck: Present: supple Additional Comments: tachycardic Neurologic: Present: alert and oriented x3 Psychiatric: Present: mood/affect appropriate - Lab 03/17/17 05:07 03/18/17 07:39 Most recent lab results Calcium 8.7 mg/dL (8.6-10.8) 03/18/17 07:39 Magnesium 1.8 mg/dL (1.7-2.2) 03/15/17 08:46 Urine Creatinine 72 mg/dL 03/17/17 13:50 Urine Sodium 57.0 mEq/L 03/17/17 13:50 - VTE Documentation of Mechanical Device: Intermittent pneumatic compression device Consult Discharge Plan - Plan Additional Instructions: Discharge Instructions: Lumbar Please call [facility] ([phone]), your Primary Care Physician, or report to the ER if you have any of the following symptoms: Fever greater that 101.5, increased pain/redness/drainage/odor for your incision site or any other concerning symptoms. ACTIVITY * May Shower * No Tub Baths * No lifting greater than 10 pounds * No Smoking * No Swimming * No off Ground Activities (Running, Climbing, Ladders, Horseback Riding) * No Driving * Wear Back Brace when up walking if lumbar fusion done MEDICATIONS: Upon discharge resume your home medications. Take all the medications as prescribed. Take a stool softener if taking narcotic pain medications. Stool softeners are only effective if you drink enough fluids. Drink 6-8 glass of water or fluids a day, unless this is not allowed for another health problem. Despite using stool softeners, if you haven't had a bowel movement in 3 days, please switch to a gentle laxative. Gentle laxatives are sold over the counter. You should have a bowel movement within 24 hours, if not call the office. You will be discharged from the hospital with a prescription for pain medication. You are encouraged to decrease the use of narcotic pain medication as tolerated. Should you require a refill, please call the office. It is best to call 48-72 hours in advance of needing a prescription refill so you don't run out of medication. WOUND CARE: Remove Dressing Tomorrow. Leave incision open to air. Pat dry when you get out of the shower. FOLLOW-UP: Please follow up with your surgeon in the orthopedic clinic in 2 weeks from the day of surgery. References: [employer] (www.[email or web address].org) Referrals: Lily Chairez, NABEEL [Primary Care Provider] - 03/20/17 1:30 pm Asia Ceron PAC [Physician Instrumentation Chemist] - 04/04/17 10:00 am Robi Felix CNP [Advanced Practice Nurse] - Jeff Graham MD [Partnered Physician] - 04/03/17 2:15 pm
[2017-03-18 16:27] VITALS: BP 128/63
== END 2017-03-18 17:23 | DRG 310 ==
LOC: SAMDAY 09:08 → 3NENU 14:21
PROVIDERS: ADMIT Orthopaedic Surgery Orthopaedic Surgery of the Spine; ATTEND Orthopaedic Surgery Orthopaedic Surgery of the Spine